=== PATIENT | female | born 1960 | race Caucasian/White ===

== ENCOUNTER 2018-12-14 18:06 | Inpatient (IN) | payer MEDICAID, OTHER ==
[~2018-12-14] VITALS: Ht 160 cm; Wt 57.1 kg
[2018-12-14] MEDS ORDERED: HYDROmorphONE 1 MG/ML SYG IV STA (20:02)
[2018-12-14] MEDS ORDERED: SOD CHLORIDE 0.9% 1,000 ML IV STA (20:02)
[2018-12-14] MEDS ORDERED: ONDANSETRON 4 MG INJ IV STA (20:02)
--- NOTE | 2018-12-14 20:12 | ERD ---
ER Documentation Chief Complaint Chief Complaint RUQ pain [id number] worse today with nausea and diarrhea HPI 58-year-old female who presents the emergency room with 1 month of right-sided abdominal pain the patient has been evaluated outside hospitals in the past and been diagnosed with cholelithiasis. Patient describes persistent abdominal pain that is right-sided lower greater than upper radiating to her right flank. She denies any fevers or chills. Mild nausea but no vomiting and slightly loose stools. Pain is 10 out of 10 currently. ROS All systems reviewed and are negative except as per history of present illness. Medications Home Meds Reported Medications Ondansetron Hcl* (Zofran*) 4 Mg Tablet, 4 MG PO Q8, TAB 12/14/18 Tramadol Hcl* (Ultram*) 50 Mg Tablet, 50 MG PO Q12H PRN for PAIN, TAB 12/14/18 Metformin Hcl* (Metformin Hcl*) 500 Mg Tablet, 500 MG PO WITH BREAKFAST DINNE, #60 TAB 12/14/18 Atorvastatin* (Atorvastatin*) 80 Mg Tablet, 80 MG PO QHS, #30 TAB 12/14/18 Allergies Allergies: Coded Allergies: No Known Allergy (Unverified , 12/14/18) FmHx Family History: No diabetes Physical Exam Vitals Vital Signs Date Temp Pulse Resp B/P (MAP) Pulse Ox O2 O2 Flow FiO2 Time Delivery Rate 12/14/18 98.9 89 18 134/86 100 Room Air 20:22 (102) 12/14/18 99.2 97 18 178/84 100 18:07 (115) Physical Exam General: Uncomfortable Head: Normocephalic, atraumatic. Eyes: Pupils equally reactive, EOM intact ENT: Moist mucous membranes Neck: Supple, no lymphadenopathy Respiratory: Lungs clear bilaterally, no distress Cardiovascular: RRR, no murmurs, rubs, or gallops Abdominal: Soft, right-sided tenderness with tenderness to palpation in the right upper quadrant and right lower quadrant, mild voluntary guarding : Deferred MSK: No edema, no unilateral swelling, 5/5 strength Neurologic: Alert and oriented, moving all extremities, normal speech, no focal weakness, no cerebellar signs Skin: No rash Psych: Normal mood Result Diagram: 12/14/18200612/14/182006 Results 24 hrs Laboratory Tests Test 12/14/18 20:07 White Blood Count 8.4 10^3/ul Red Blood Count 4.49 10^6/ul Hemoglobin 13.2 g/dl Hematocrit 40.0 % Mean Corpuscular Volume 89.1 fl Mean Corpuscular Hemoglobin 29.4 pg Mean Corpuscular Hemoglobin Concent 33.0 g/dl Red Cell Distribution Width 12.5 % Platelet Count 489 10^3/UL Mean Platelet Volume 10.3 fl Immature Granulocytes % 0.400 % Neutrophils % 52.9 % Lymphocytes % 38.2 % Monocytes % 7.1 % Eosinophils % 0.8 % Basophils % 0.6 % Nucleated Red Blood Cells % 0.0 /100WBC Immature Granulocytes # 0.030 10^3/ul Neutrophils # 4.5 10^3/ul Lymphocytes # 3.2 10^3/ul Monocytes # 0.6 10^3/ul Eosinophils # 0.1 10^3/ul Basophils # 0.1 10^3/ul Nucleated Red Blood Cells # 0.0 10^3/ul Urine Color YELLOW Urine Clarity CLEAR Urine pH 6.0 Urine Specific [place] 1.021 Urine Ketones NEGATIVE mg/dL Urine Nitrite NEGATIVE mg/dL Urine Bilirubin NEGATIVE mg/dL Urine Urobilinogen NEGATIVE mg/dL Urine Leukocyte Esterase 2+ Concha/ul Urine Microscopic RBC 3 /HPF Urine Microscopic WBC 38 /HPF Urine Squamous Epithelial Cells FEW /HPF Urine Mucus MODERATE /HPF Urine Hemoglobin NEGATIVE mg/dL Urine Glucose 3+ mg/dL Urine Total Protein NEGATIVE mg/dl Sodium Level 133 mmol/L Potassium Level 4.4 mmol/L Chloride Level 94 mmol/L Carbon Dioxide Level 29 mmol/L Anion Gap 10 Blood Urea Nitrogen 12 mg/dl Creatinine 0.45 mg/dl Est Glomerular Filtrat Rate mL/min > 60 mL/min Glucose Level 268 mg/dl Calcium Level 10.0 mg/dl Total Bilirubin 0.4 mg/dl Direct Bilirubin 0.00 mg/dl Indirect Bilirubin 0.4 mg/dl Aspartate Amino Transf (AST/SGOT) 38 IU/L Alanine Aminotransferase (ALT/SGPT) 40 IU/L Alkaline Phosphatase 142 IU/L Total Protein 8.6 g/dl Albumin 4.3 g/dl Globulin 4.30 g/dl Albumin/Globulin Ratio 1.00 Lipase 236 U/L Current Medications Medications Dose Sig/Vonnie Start Time Status Last (Trade) Ordered Route PRN Stop Time Admin Dose Reason Admin Sodium 1,000 ml @ Q1H STAT 12/14/18 DC 12/14/18 Chloride 1,000 mls/hr IV 20:02 12/14/18 20:16 21:01 1 mg ONCE STAT 12/14/18 DC 12/14/18 Hydromorphone IV 20:02 12/14/18 20:16 HCl 20:03 (Dilaudid) Ondansetron 4 mg ONCE STAT 12/14/18 DC 12/14/18 HCl (Zofran IV 20:02 12/14/18 20:16 Inj) 20:03 Sodium 1,000 ml @ Q10H IV 12/14/18 Chloride 100 mls/hr 21:30 IV Flush 3 ml PER 12/14/18 (NS 3 ml) PROTOCOL IV 21:30 Ondansetron 4 mg Q6H PRN 12/14/18 HCl (Zofran IV 21:30 Inj) NAUSEA/VOMITI NG 0.5 mg Q4H PRN 12/14/18 Hydromorphone IV .SEVERE 21:30 HCl PAIN 7-10 (Dilaudid) Docusate 100 mg Q12H PRN 12/14/18 Sodium PO 21:30 (Colace) .CONSTIPATION Bisacodyl 5 mg DAILY PRN 12/14/18 (Dulcolax) PO 21:30 .CONSTIPATION 80 mg QHS PO 12/15/18 DC Atorvastatin 21:00 12/15/18 Calcium 21:00 (Lipitor) 80 mg QHS PO 12/14/18 Atorvastatin 22:00 Calcium (Lipitor) Procedures/MDM EKG, MONITORS, & DIAGNOSTIC IMAGING: Gallbladder ultrasound: IMPRESSION: Cholelithiasis without evidence of acute cholecystitis. Hepatic steatosis. RPTAT: AA CT abdomen and pelvis: IMPRESSION: No acute abnormalities in the abdomen or pelvis. Cholelithiasis without CT evidence of acute cholecystitis. Atherosclerotic disease. RPTAT: AA LAB INTERPRETATION: * CBC without evidence of infection, chemistry profile without evidence of hepatobiliary obstruction MEDICAL DECISION MAKING: Patient presents with right-sided abdominal pain. She is describing and pointing to her pain is the lower abdomen which raises the concern for possible appendicitis or colonic process. However, the patient has a known history of c holelithiasis. I have a strong suspicion for biliary colic or acute cholecystitis or acute choledocholithiasis. CT imaging and ultrasound imaging will be appropriate. Patient benefit from IV fluids and pain control medication. ER COURSE: * Patient still has persistent pain. The patient likely has biliary colic. Patient has been bouncing around different hospitals with the diagnosis of biliary colic and is at risk for gallstone pancreatitis. I would recommend inpatient hospitalization if the patient's pain cannot be controlled. She feels comfortable with this plan. Dr. Hagen notified. He will consult. * No indication for antibiotics. CONSULTATION: [None] DISPOSITION PLAN: Medical surgical admission for intractable abdominal pain secondary to biliary colic Accepting care team and consultations: I discussed the current laboratory data, diagnostic imaging and emergency care provided. Admitting team: Dr. [place] Admitting team indication: Insurance directed Departure Diagnosis: Primary Impression: Abdominal pain Abdominal location: right upper quadrant Qualified Codes: R10.11 - Right upper quadrant pain Additional Impressions: Biliary colic Intractable abdominal pain Condition: Stable ANNAMARIE DOE MD Dec 14, 2018 20:12
[2018-12-14] MEDS ORDERED: METF500T24 PO (20:30)
[2018-12-14] MEDS ORDERED: ATOR-2 PO (20:30)
[2018-12-14] MEDS ORDERED: TRAM50TA PO (20:31)
[2018-12-14] MEDS ORDERED: ONDA4TAB8 PO (20:31)
[2018-12-14] MEDS ORDERED: NACL 0.9% 3 ML SYG IV SCH (21:30)
--- NOTE | 2018-12-14 21:35 | HP ---
Date/Time of Note Date/Time of Note DATE: 12/14/18 TIME: 21:35 Assessment/Plan VTE Prophylaxis SCD applied (from Nsg): Yes Pharmacological prophylaxis: NA/contraindicated Pharm contraindication: low risk/ambulating Lines/Catheters IV Catheter Type (from Nrsg): Saline Lock Assessment/Plan Hospital Course This is a 58-year-old female being admitted to the [facility] floor for: #1 symptomatic cholelithiasis: Patient has been dealing with gallstones approximately 1 month. Has been to multiple hospitals. General surgery has been consulted by the ED, will await their recommendations. At the current time I will give her a dose of prophylactic Zosyn in the a.m. in case does go to the operating room. She remains afebrile. But she is in pain. We will keep the patient n.p.o. except meds, pain control. #2 urinary tract infection: Urine culture, ceftriaxone 1 g every 24 hours #3 diabetes mellitus: We will check hemoglobin A 1C, insulin sliding scale, adjust diabetes medications as indicated #4 DVT GI prophylaxis: SCDs, no GI prophylaxis indicated Further treatment strategy will be implemented as per the clinical course Result Diagram: 12/14/18200612/14/182006 Results 24hrs Laboratory Tests Test 12/14/18 20:07 White Blood Count 8.4 Red Blood Count 4.49 Hemoglobin 13.2 Hematocrit 40.0 Mean Corpuscular Volume 89.1 Mean Corpuscular Hemoglobin 29.4 Mean Corpuscular Hemoglobin Concent 33.0 Red Cell Distribution Width 12.5 Platelet Count 489 H Mean Platelet Volume 10.3 Immature Granulocytes % 0.400 Neutrophils % 52.9 Lymphocytes % 38.2 Monocytes % 7.1 Eosinophils % 0.8 Basophils % 0.6 Nucleated Red Blood Cells % 0.0 Immature Granulocytes # 0.030 Neutrophils # 4.5 Lymphocytes # 3.2 H Monocytes # 0.6 Eosinophils # 0.1 Basophils # 0.1 Nucleated Red Blood Cells # 0.0 Urine Color YELLOW Urine Clarity CLEAR Urine pH 6.0 Urine Specific [place] 1.021 Urine Ketones NEGATIVE Urine Nitrite NEGATIVE Urine Bilirubin NEGATIVE Urine Urobilinogen NEGATIVE Urine Leukocyte Esterase 2+ H Urine Microscopic RBC 3 Urine Microscopic WBC 38 H Urine Squamous Epithelial Cells FEW Urine Mucus MODERATE Urine Hemoglobin NEGATIVE Urine Glucose 3+ H Urine Total Protein NEGATIVE Sodium Level 133 L Potassium Level 4.4 Chloride Level 94 L Carbon Dioxide Level 29 Anion Gap 10 Blood Urea Nitrogen 12 Creatinine 0.45 Est Glomerular Filtrat Rate mL/min > 60 Glucose Level 268 H Calcium Level 10.0 Total Bilirubin 0.4 Direct Bilirubin 0.00 Indirect Bilirubin 0.4 Aspartate Amino Transf (AST/SGOT) 38 Alanine Aminotransferase (ALT/SGPT) 40 Alkaline Phosphatase 142 H Total Protein 8.6 H Albumin 4.3 Globulin 4.30 H Albumin/Globulin Ratio 1.00 Lipase 236 HPI/ROS Admit Date/Time Admit Date/Time Hx of Present Illness Chief complaint: Right upper quadrant abdominal pain times 1 month This is a 58-year-old female who presents the emergency room with 1 month of right-sided abdominal pain the patient has been evaluated outside hospitals in the past and been diagnosed with cholelithiasis. Patient describes persistent abdominal pain that is right-sided lower greater than upper radiating to her right flank. She denies any fevers or chills. Mild nausea but no vomiting and slightly loose stools. When patient was in the emergency room she did report 10 out of 10 pain. Patient reports that she was admitted to [place] and was scheduled to have a cholecystectomy however given that she was not a [facility] member she was not able to have the surgery there. Allergies: NKDA Medications: See MAR ROS Const: As per HPI Eyes : No pain discharge or redness or change in visual acuity ENT: No pain, sore throat, congestion, congestion, dysphagia or discharge Respiratory: No shortness of breath, cough, sputum, wheezing, or pleuritic pain Cardiovascular: No chest pain, palpitation, PND, or edema GI : As per HPI Genitourinary: Urinary frequency Musculoskeletal: No joint pain, back pain, neck pain, restricted range of motion in neck or joints Skin: No rash, bruising or hives Neuro: No headache, dizziness, syncope, seizure, focal weakness Endocrine: No polyuria, polydipsia, temperature intolerance Psych: No hallucination, depression, anxiety or suicidal ideation Additional Comments PROCEDURE: CT abdomen and pelvis without contrast CLINICAL INDICATION: abdominal pain TECHNIQUE: CT scan of the abdomen and pelvis without contrast was performed on a multislice CT scanner. 3-D sagittal and coronal reformatted images were obtained from the axial source images. DICOM images are available. One or more of the following post reduction techniques were used: - Automated exposure control. - Adjustment of the mA and/or Kv according to patient's size. - Use of iterative reconstruction technique DLP 342 mGycm CTDIvol 5.6 mGy COMPARISON: None FINDINGS: Visualized lung bases: Unremarkable Liver: Unremarkable Gallbladder: There are multiple intraluminal gallstones. Spleen: Unremarkable Pancreas: Unremarkable Adrenal glands: Unremarkable Kidneys: Unremarkable GI Tract: Unremarkable Vasculature: Mild aortoiliac atherosclerotic disease. Lymphadenopathy: Absent Peritoneal cavity: No ascites Bladder: The bladder is distended. Reproductive organs: Unremarkable Bones: Degenerative changes of the spine. Extraperitoneal soft tissues: Unremarkable Lines/drains/medical devices: None IMPRESSION: No acute abnormalities in the abdomen or pelvis. Cholelithiasis without CT evidence of acute cholecystitis. Atherosclerotic disease. RPTAT: AA Physician Misael Date Time Electronically viewed and signed by Lisbeth Corona Physician on 12/14/2018 21:09 RB/ CC: ANNAMARIE DOE MD [id number] PROCEDURE: US Abdomen Limited. CLINICAL INDICATION: Abdominal pain TECHNIQUE: Multiple real-time images were acquired of the patient's abdomen utilizing a high resolution transducer. COMPARISON: None FINDINGS: Liver: Normal in size measuring 16.5 cm. Increased echogenicity. No focal lesions. Gallbladder: No intraluminal gallstones. No pericholecystic fluid. No wall thickening. Biliary tract: No intra- or extrahepatic ductal dilation. The common bile duct measures 5 mm in maximal dimension. Pancreas: Poorly visualized due to excessive bowel gas. Right Kidney: Normal in size measuring 10.0 cm. Normal echogenicity. No dilatation of the pelvicaliceal system. No areas of increased echogenicity to suggest nephrolithiasis. No solid renal mass. Other: No free fluid is identified. IMPRESSION: Cholelithiasis without evidence of acute cholecystitis. Hepatic steatosis. RPTAT: AA Lisbeth Corona Physician Date Time Electronically viewed and signed by Lisbeth Corona Physician on 12/14/2018 21:10 RB/ CC: ANNAMARIE DOE MD [id number] PMH/Family/Social Past Medical History Diabetes mellitus, history of ovarian tumor Medications Current Medications Sodium Chloride 1,000 ml @ 100 mls/hr Q10H IV ; Start 12/14/18 at 21:30 IV Flush (NS 3 ml) 3 ml PER PROTOCOL IV ; Start 12/14/18 at 21:30 Ondansetron HCl (Zofran Inj) 4 mg Q6H PRN IV NAUSEA/VOMITING; Start 12/14/18 at 21:30 Hydromorphone HCl (Dilaudid) 0.5 mg Q4H PRN IV .SEVERE PAIN 7-10; Start 12/14/18 at 21:30 Docusate Sodium (Colace) 100 mg Q12H PRN PO .CONSTIPATION; Start 12/14/18 at 21:30 Bisacodyl (Dulcolax) 5 mg DAILY PRN PO .CONSTIPATION; Start 12/14/18 at 21:30 Coded Allergies: No Known Allergy (Unverified , 12/14/18) Past Surgical History Ovarian tumor removal, unknown which side Family History Significant Family History: no pertinent family hx Social History Alcohol Use: none Smoking Status: Never smoker Drug Use: none Exam/Review of Systems Vital Signs Vitals Vital Signs Date Temp Pulse Resp B/P (MAP) Pulse Ox O2 O2 Flow FiO2 Time Delivery Rate 12/14/18 98.9 89 18 134/86 100 Room Air 20:22 (102) Exam Exam General: Patient is currently lying in bed, she does appear uncomfortable from right upper quadrant pain HEENT: Atraumatic, normocephalic. The pupils are equal, round and reactive. Extraocular motor are intact Neck: Supple with full range of motion. No rigidity or meningismus Chest: Nontender Lungs: Clear to auscultation bilaterally no crackles rales or wheezing Heart: Normal S1-S2, Regular rhythm and rate. No murmur, S3, or S4 Abdomen: Soft , tenderness of the right upper quadrant, nondistended , bowel sounds are present. No guarding no rebound tenderness , No masses or org anomegaly. No costovertebral temporal angle mass Genitourinary: Mild suprapubic tenderness palpation Extremities: Normal to inspection, no edema no cyanosis Neurologic: Normal mental status, speech normal, cranial nerves II through XII are intact, motor and sensory are intact, no focal weakness Additional Comments PROCEDURE: CT abdomen and pelvis without contrast CLINICAL INDICATION: abdominal pain TECHNIQUE: CT scan of the abdomen and pelvis without contrast was performed on a multislice CT scanner. 3-D sagittal and coronal reformatted images were obtained from the axial source images. DICOM images are available. One or more of the following post reduction techniques were used: - Automated exposure control. - Adjustment of the mA and/or Kv according to patient's size. - Use of iterative reconstruction technique DLP 342 mGycm CTDIvol 5.6 mGy COMPARISON: None FINDINGS: Visualized lung bases: Unremarkable Liver: Unremarkable Gallbladder: There are multiple intraluminal gallstones. Spleen: Unremarkable Pancreas: Unremarkable Adrenal glands: Unremarkable Kidneys: Unremarkable GI Tract: Unremarkable Vasculature: Mild aortoiliac atherosclerotic disease. Lymphadenopathy: Absent Peritoneal cavity: No ascites Bladder: The bladder is distended. Reproductive organs: Unremarkable Bones: Degenerative changes of the spine. Extraperitoneal soft tissues: Unremarkable Lines/drains/medical devices: None IMPRESSION: No acute abnormalities in the abdomen or pelvis. Cholelithiasis without CT evidence of acute cholecystitis. Atherosclerotic disease. RPTAT: AA Physician Misael Date Time Electronically viewed and signed by Physician Misael on 12/14/2018 21:09 RB/ CC: ANNAMARIE DOE MD [id number] PROCEDURE: US Abdomen Limited. CLINICAL INDICATION: Abdominal pain TECHNIQUE: Multiple real-time images were acquired of the patient's abdomen utilizing a high resolution transducer. COMPARISON: None FINDINGS: Liver: Normal in size measuring 16.5 cm. Increased echogenicity. No focal lesions. Gallbladder: No intraluminal gallstones. No pericholecystic fluid. No wall thickening. Biliary tract: No intra- or extrahepatic ductal dilation. The common bile duct measures 5 mm in maximal dimension. Pancreas: Poorly visualized due to excessive bowel gas. Right Kidney: Normal in size measuring 10.0 cm. Normal echogenicity. No dilatation of the pelvicaliceal system. No areas of increased echogenicity to suggest nephrolithiasis. No solid renal mass. Other: No free fluid is identified. IMPRESSION: Cholelithiasis without evidence of acute cholecystitis. Hepatic steatosis. RPTAT: AA Physician Misael Date Time Electronically viewed and signed by Physician Misael on 12/14/2018 21:10 RB/ CC: ANNAMARIE DOE MD [id number] ALECIA ZAMUDIO Dec 14, 2018 21:35
[2018-12-14] MEDS: ATORVASTATIN 80 MG TAB PO SCH (22:23)
[2018-12-14] MEDS: SOD CHLORIDE 0.9% 1,000 ML IV SCH (22:23)
[2018-12-14 23:26] VITALS: Ht 160 cm; Wt 57.1 kg
[2018-12-14 23:30] VITALS: BP 133/70; PULSE 82; RESP 18
[2018-12-14] MEDS: ONDANSETRON 4 MG INJ IV PRN (23:38)
[2018-12-15 02:03] VITALS: BP 129/72; RESP 20
[2018-12-15] MEDS: CEFTRIAXONE 1 GM/50 ML (PMX) 50 ML IVPB SCH (05:25)
--- NOTE | 2018-12-15 06:02 | NUR ---
EOSS: PATIENT ADMITTED WITH DX OF BILIARY COLIC. NOTED WITH NAUSEA AND VOMITING. ZOFRAN IV GIVEN ORDERED WITH RELIEF. PATIENT ON NPO STATUS IV FLUIDS INFUSING. PATIENT ABLE TO AMBULATE WITHOUT AD, STEADY. NEEDS MET & ATTENDED. WILL CONTINUE TO MONITOR.
[2018-12-15] MEDS ORDERED: PIPER-TAZO 3.375 GM IV (PMX) 100 ML IVPB ONE (07:30)
[2018-12-15 08:14] VITALS: BP 117/61; RESP 20
[2018-12-15] MEDS: SOD CHLORIDE 0.9% 1,000 ML IV SCH ×2 (08:14→20:16)
--- NOTE | 2018-12-15 10:07 | PN ---
Date/Time of Note Date/Time of Note DATE: 12/15/18 TIME: 10:06 Assessment/Plan VTE Prophylaxis SCD applied (from Nsg): Yes Pharmacological prophylaxis: NA/contraindicated Pharm contraindication: low risk/ambulating Lines/Catheters IV Catheter Type (from Nrsg): Peripheral IV Assessment/Plan Hospital Course SUBJECTIVE: Continues to have abdominal pain. Denies any nausea vomiting. OBJECTIVE: Physical Exam General: Adequately build 58 year-old female lying in bed in no apparent distres s. HEENT: Normocephalic, atraumatic. Eyes: Anicteric sclerae, conjunctivae clear. ENT: Nasal septum midline, oral mucosa moist. Neck supple. Respiratory: Bilaterally clear breath sounds. No use of accessory muscles of respiration. No adventitious breath sounds. Cardiovascular: S1, S2 heard. Regular rate and rhythm. Abdomen: Soft and nondistended. Right lower quadrant tenderness. Bowel sounds positive in all 4 quadrants. Genitourinary: Deferred. Extremities: No cyanosis, no clubbing, no edema. Peripheral pulses palpable. Neurologic: Cranial nerves II through XII grossly intact. The patient is awake, alert, and oriented. Skin: Normal skin turgor. No skin rashes. Labs & Vitals per chart ASSESSMENT & PLAN This is a 58-year-old female with past medical history of diabetes mellitus and history of ovarian tumor status post removal. The patient has been to multiple hospitals recently because of abdominal pain. The patient came to [facility] emergency room because of continuous right upper quadrant abdominal pain with associated nausea and diarrhea. There was no reported fevers or chills. In the emergency room, the patient underwent a gallbladder ultrasound that was showing cholelithiasis with hepatic steatosis. CT scan of the abdomen and pelvis also showed cholelithiasis without CT evidence of acute cholecystitis. The patient was admitted to inpatient setting for further treatment and evaluation. 1. Symptomatic cholelithiasis. -Continue n.p.o. -Continue IV fluids. -Obtain HIDA scan. -Surgical consult pending. 2. Positive urinalysis. -On empiric antibiotics. -Await final cultures. 3. Diabetes mellitus. -Hemoglobin A1c 10.9. -Start the patient on sliding scale insulin along with basal insulin. 4. Fluids, electrolytes, and nutrition. -N.p.o. except for medications. -IV fluids. 5.DVT prophylaxis. -Bilateral SCDs. 6. Plan. -Continue pain control. -Continue n.p.o. -Obtain HIDA scan. -Await surgical evaluation. The patient was seen in collaboration with Dr. Ayala. Result Diagram: 12/15/1844912/15/18 0450 Results 24hrs Laboratory Tests Test 12/14/18 20:07 12/15/18 04:50 White Blood Count 8.4 6.1 # Red Blood Count 4.49 3.71 L Hemoglobin 13.2 10.9 L Hematocrit 40.0 33.2 L Mean Corpuscular Volume 89.1 89.5 Mean Corpuscular Hemoglobin 29.4 29.4 Mean Corpuscular Hemoglobin Concent 33.0 32.8 Red Cell Distribution Width 12.5 12.3 Platelet Count 489 H 425 H Mean Platelet Volume 10.3 10.7 H Immature Granulocytes % 0.400 0.200 Neutrophils % 52.9 55.5 Lymphocytes % 38.2 35.1 Monocytes % 7.1 7.8 Eosinophils % 0.8 0.7 Basophils % 0.6 0.7 Nucleated Red Blood Cells % 0.0 0.0 Immature Granulocytes # 0.030 0.010 Neutrophils # 4.5 3.4 Lymphocytes # 3.2 H 2.1 Monocytes # 0.6 0.5 Eosinophils # 0.1 0.0 Basophils # 0.1 0.0 Nucleated Red Blood Cells # 0.0 0.0 Urine Color YELLOW Urine Clarity CLEAR Urine pH 6.0 Urine Specific Tensed 1.021 Urine Ketones NEGATIVE Urine Nitrite NEGATIVE Urine Bilirubin NEGATIVE Urine Urobilinogen NEGATIVE Urine Leukocyte Esterase 2+ H Urine Microscopic RBC 3 Urine Microscopic WBC 38 H Urine Squamous Epithelial Cells FEW Urine Mucus MODERATE Urine Hemoglobin NEGATIVE Urine Glucose 3+ H Urine Total Protein NEGATIVE Sodium Level 133 L 134 L Potassium Level 4.4 4.7 Chloride Level 94 L 100 Carbon Dioxide Level 29 27 Anion Gap 10 7 Blood Urea Nitrogen 12 9 Creatinine 0.45 0.38 L Est Glomerular Filtrat Rate mL/min > 60 > 60 Glucose Level 268 H 299 H Calcium Level 10.0 8.8 Total Bilirubin 0.4 0.4 Direct Bilirubin 0.00 0.00 Indirect Bilirubin 0.4 0.4 Aspartate Amino Transf (AST/SGOT) 38 31 Alanine Aminotransferase (ALT/SGPT) 40 34 Alkaline Phosphatase 142 H 110 Total Protein 8.6 H 6.3 # Albumin 4.3 3.2 #L Globulin 4.30 H 3.10 Albumin/Globulin Ratio 1.00 1.03 Lipase 236 Hemoglobin A1c 10.9 H Magnesium Level 2.2 Triglycerides Level 96 Cholesterol Level 99 L LDL Cholesterol, Calculated 60 HDL Cholesterol 20 L Cholesterol/HDL Ratio 4.9 Thyroid Stimulating Hormone (TSH) 0.149 L Exam/Review of Systems Exam Vitals Vital Signs Date Temp Pulse Resp B/P (MAP) Pulse Ox O2 O2 Flow FiO2 Time Delivery Rate 12/15/18 98.8 20 117/61 96 Room Air 08:14 (79) 12/14/18 82 23:30 Intake and Output 12/14/18 12/14/18 12/15/18 1515:00 23:00 07:00 IntakeIntake Total 700 ml BalanceBalance 700 ml Results Results 24hrs Laboratory Tests Test 12/14/18 20:07 12/15/18 04:50 White Blood Count 8.4 6.1 # Red Blood Count 4.49 3.71 L Hemoglobin 13.2 10.9 L Hematocrit 40.0 33.2 L Mean Corpuscular Volume 89.1 89.5 Mean Corpuscular Hemoglobin 29.4 29.4 Mean Corpuscular Hemoglobin Concent 33.0 32.8 Red Cell Distribution Width 12.5 12.3 Platelet Count 489 H 425 H Mean Platelet Volume 10.3 10.7 H Immature Granulocytes % 0.400 0.200 Neutrophils % 52.9 55.5 Lymphocytes % 38.2 35.1 Monocytes % 7.1 7.8 Eosinophils % 0.8 0.7 Basophils % 0.6 0.7 Nucleated Red Blood Cells % 0.0 0.0 Immature Granulocytes # 0.030 0.010 Neutrophils # 4.5 3.4 Lymphocytes # 3.2 H 2.1 Monocytes # 0.6 0.5 Eosinophils # 0.1 0.0 Basophils # 0.1 0.0 Nucleated Red Blood Cells # 0.0 0.0 Urine Color YELLOW Urine Clarity CLEAR Urine pH 6.0 Urine Specific [place]ensed 1.021 Urine Ketones NEGATIVE Urine Nitrite NEGATIVE Urine Bilirubin NEGATIVE Urine Urobilinogen NEGATIVE Urine Leukocyte Esterase 2+ H Urine Microscopic RBC 3 Urine Microscopic WBC 38 H Urine Squamous Epithelial Cells FEW Urine Mucus MODERATE Urine Hemoglobin NEGATIVE Urine Glucose 3+ H Urine Total Protein NEGATIVE Sodium Level 133 L 134 L Potassium Level 4.4 4.7 Chloride Level 94 L 100 Carbon Dioxide Level 29 27 Anion Gap 10 7 Blood Urea Nitrogen 12 9 Creatinine 0.45 0.38 L Est Glomerular Filtrat Rate mL/min > 60 > 60 Glucose Level 268 H 299 H Calcium Level 10.0 8.8 Total Bilirubin 0.4 0.4 Direct Bilirubin 0.00 0.00 Indirect Bilirubin 0.4 0.4 Aspartate Amino Transf (AST/SGOT) 38 31 Alanine Aminotransferase (ALT/SGPT) 40 34 Alkaline Phosphatase 142 H 110 Total Protein 8.6 H 6.3 # Albumin 4.3 3.2 #L Globulin 4.30 H 3.10 Albumin/Globulin Ratio 1.00 1.03 Lipase 236 Hemoglobin A1c 10.9 H Magnesium Level 2.2 Triglycerides Level 96 Cholesterol Level 99 L LDL Cholesterol, Calculated 60 HDL Cholesterol 20 L Cholesterol/HDL Ratio 4.9 Thyroid Stimulating Hormone (TSH) 0.149 L Medications Medication Current Medications Sodium Chloride 1,000 ml @ 100 mls/hr Q10H IV Last administered on 12/15/18at 08:14; Admin Dose 100 MLS/HR; Start 12/14/18 at 21:30 IV Flush (NS 3 ml) 3 ml PER PROTOCOL IV ; Start 12/14/18 at 21:30 Ondansetron HCl (Zofran Inj) 4 mg Q6H PRN IV NAUSEA/VOMITING Last administered on 12/14/18at 23:38; Admin Dose 4 MG; Start 12/14/18 at 21:30 Hydromorphone HCl (Dilaudid) 0.5 mg Q4H PRN IV .SEVERE PAIN 7-10; Start 12/14/18 at 21:30 Docusate Sodium (Colace) 100 mg Q12H PRN PO .CONSTIPATION; Start 12/14/18 at 21:30 Bisacodyl (Dulcolax) 5 mg DAILY PRN PO .CONSTIPATION; Start 12/14/18 at 21:30 Atorvastatin Calcium (Lipitor) 80 mg QHS PO Last administered on 12/14/18at 22:23; Admin Dose 80 MG; Start 12/14/18 at 22:00 Ceftriaxone Sodium 50 ml @ 100 mls/hr Q24H IVPB Last administered on 12/15/18at 05:25; Admin Dose 100 MLS/HR; Start 12/15/18 at 02:30 MINA REID NP Dec 15, 2018 10:07
[2018-12-15] MEDS ORDERED: GLUCOSE GEL 15 GRAM TUBE BUCCAL PRN (10:30)
[2018-12-15] MEDS ORDERED: INSULIN ASPART [NOVOLOG] 3 ML PEN SC SCH (10:30)
[2018-12-15] MEDS ORDERED: GLUCAGON 1 MG INJ IM PRN (10:30)
[2018-12-15] MEDS ORDERED: GLUCOSE GEL 15 GRAM TUBE PO PRN ×2 (10:30)
[2018-12-15] MEDS ORDERED: DEXTROSE 50% 50 ML SYRINGE IV PRN ×2 (10:30)
[2018-12-15] MEDS ORDERED: Insulin NOVOLOG SS MILD Algorithm (NPO/TPN/ENTERAL FEEDS) SC SCH (13:00)
[2018-12-15 14:00] VITALS: BP 120/66; PULSE 68; RESP 18
--- NOTE | 2018-12-15 17:12 | CONS ---
Assessment/Plan Assessment/Plan Hospital Course (Demo Recall) 1. Cholelithiasis:? Asymptomatic; HIDA noted -Diet [id number] low-cholesterol> if prandial pain can consider sx 2. Abdominal pain: 2/? #1 versus other -As above -Pain management 3.Thrombocytosis: -Trend -Further workup if persistent 4. Normocytic normochromic anemia: -Monitor and transfuse as needed 5. Hyponatremia: -Judicious fluid correction 6. Controlled diabetes: -Glucose control 7. Hypothyroidism: -Med management 8. Hypoalbuminemia: -Eventual nutrition optimization 9. Pyuria -Frequent bladder emptying Thank you. Patient seen and examined in collaboration with Dr. Josh Hagen. Consultation Date/Type/Reason Admit Date/Time Date of Consultation: Dec 15, 2018 Type of Consult surgical Reason for Consultation abdominal pain Requesting Provider: ALECIA ZAMUDIO Date/Time of Note DATE: 12/15/18 TIME: 16:59 Hx of Present Illness Saima Hernandez is a 58-year-old woman with past medical history of diabetes and ovarian tumor status post ovarian tumor removal who presented to the hospital with complaints of abdominal pain times 1 month. Abdominal pain is predominantly in the right lower quadrant burning in nature. Pain is reportedly worsening over the past 1 month. Pain is persistent without any noted exacerbating factors. Alleviating factors include analgesics. Associated symptoms include nausea without vomiting and loose stools. She denies fevers, chills, congested cough chest pain, palpitations, dysuria, hematuria, hematochezia or dyschezia, hematemesis, melena, vaginal discharge or bleeding. CT of the abdomen shows cholelithiasis without evidence of acute cholecystitis. Laboratory findings are unremarkable. General surgery was asked to evaluate. 12 point review of systems was performed and is negative except as stated in HPI. Past Medical History As above Home Meds Reported Medications Ondansetron Hcl* (Zofran*) 4 Mg Tablet, 4 MG PO Q8, TAB 12/14/18 Tramadol Hcl* (Ultram*) 50 Mg Tablet, 50 MG PO Q12H PRN for PAIN, TAB 12/14/18 Metformin Hcl* (Metformin Hcl*) 500 Mg Tablet, 500 MG PO WITH BREAKFAST DINNE, #60 TAB 12/14/18 Atorvastatin* (Atorvastatin*) 80 Mg Tablet, 80 MG PO QHS, #30 TAB 12/14/18 Medications Current Medications Sodium Chloride 1,000 ml @ 100 mls/hr Q10H IV Last administered on 12/15/18at 08:14; Admin Dose 100 MLS/HR; Start 12/14/18 at 21:30 IV Flush (NS 3 ml) 3 ml PER PROTOCOL IV ; Start 12/14/18 at 21:30 Ondansetron HCl (Zofran Inj) 4 mg Q6H PRN IV NAUSEA/VOMITING Last administered on 12/14/18at 23:38; Admin Dose 4 MG; Start 12/14/18 at 21:30 Hydromorphone HCl (Dilaudid) 0.5 mg Q4H PRN IV .SEVERE PAIN 7-10; Start 12/14/18 at 21:30 Docusate Sodium (Colace) 100 mg Q12H PRN PO .CONSTIPATION; Start 12/14/18 at 21:30 Bisacodyl (Dulcolax) 5 mg DAILY PRN PO .CONSTIPATION; Start 12/14/18 at 21:30 Atorvastatin Calcium (Lipitor) 80 mg QHS PO Last administered on 12/14/18at 22:23; Admin Dose 80 MG; Start 12/14/18 at 22:00 Ceftriaxone Sodium 50 ml @ 100 mls/hr Q24H IVPB Last administered on 12/15/18at 05:25; Admin Dose 100 MLS/HR; Start 12/15/18 at 02:30 Insulin Glargine (Lantus) 9 units DAILY@2000 SC ; Start 12/15/18 at 20:00 Insulin Aspart (Novolog Insulin Pen) (Adult SC Insulin - Mild Algorithm)... Q4 SC Last administered on 12/15/18at 15:20; Admin Dose 1 UNIT; Start 12/15/18 at 13:00 Miscellaneous Information 1 ea NOTE XX ; Start 12/15/18 at 10:30 Glucose (Glutose) 15 gm Q15M PRN PO DECREASED GLUCOSE; Start 12/15/18 at 10:30 Glucose (Glutose) 22.5 gm Q15M PRN PO DECREASED GLUCOSE; Start 12/15/18 at 10:30 Dextrose (D50w Syringe) 25 ml Q15M PRN IV DECREASED GLUCOSE; Start 12/15/18 at 10:30 Dextrose (D50w Syringe) 50 ml Q15M PRN IV DECREASED GLUCOSE; Start 12/15/18 at 10:30 Glucagon (Glucagen) 1 mg Q15M PRN IM DECREASED GLUCOSE; Start 12/15/18 at 10:30 Glucose (Glutose) 15 gm Q15M PRN BUCCAL DECREASED GLUCOSE; Start 12/15/18 at 10:30 Allergies: Coded Allergies: No Known Allergy (Unverified , 12/14/18) Past Surgical History As above Family History Significant Family History: no pertinent family hx Social History Alcohol Use: none Smoking Status: Never smoker Drug Use: none Exam/Review of Systems Exam Vitals Vital Signs Date Temp Pulse Resp B/P (MAP) Pulse Ox O2 O2 Flow FiO2 Time Delivery Rate 12/15/18 98.8 20 117/61 96 Room Air 08:14 (79) 12/14/18 82 23:30 Intake and Output 12/14/18 12/14/18 12/15/18 1515:00 23:00 07:00 IntakeIntake Total 700 ml BalanceBalance 700 ml Constitutional: alert, oriented Psych: nl mood/affect, anxiety (Minimal) Head: normocephalic, atraumatic Eyes: nl conjunctiva, EOMI, nl lids, nl sclera ENMT: nl external ears & nose, nl lips & teeth, mucosa pink and moist Neck: supple, non-tender Respiratory: normal air movement; No congested cough Cardiovascular: regular rate and rhythm, nl pulses Gastrointestinal: soft, tender (Generalized); No distended, No firm Musculoskeletal: nl extremities to inspection, nl gait and stance Extremities: normal pulses; No edema Neurological: nl mental status, nl speech, nl strength Skin: nl turgor; No rash or lesions Lymph: nl lymph nodes Results Result Diagram: 12/15/1844912/15/18449 Results 24hrs Laboratory Tests Test 12/14/18 20:07 12/15/18 04:49 12/15/18 04:50 12/15/18 15:18 White Blood Count 8.4 6.1 # Red Blood Count 4.49 3.71 L Hemoglobin 13.2 10.9 L Hematocrit 40.0 33.2 L Mean Corpuscular Volume 89.1 89.5 Mean Corpuscular 29.4 29.4 Hemoglobin Mean Corpuscular 33.0 32.8 Hemoglobin Concent Red Cell Distribution 12.5 12.3 Width Platelet Count 489 H 425 H Mean Platelet Volume 10.3 10.7 H Immature Granulocytes % 0.400 0.200 Neutrophils % 52.9 55.5 Lymphocytes % 38.2 35.1 Monocytes % 7.1 7.8 Eosinophils % 0.8 0.7 Basophils % 0.6 0.7 Nucleated Red Blood 0.0 0.0 Cells % Immature Granulocytes # 0.030 0.010 Neutrophils # 4.5 3.4 Lymphocytes # 3.2 H 2.1 Monocytes # 0.6 0.5 Eosinophils # 0.1 0.0 Basophils # 0.1 0.0 Nucleated Red Blood 0.0 0.0 Cells # Urine Color YELLOW Urine Clarity CLEAR Urine pH 6.0 Urine Specific [place] 1.021 Urine Ketones NEGATIVE Urine Nitrite NEGATIVE Urine Bilirubin NEGATIVE Urine Urobilinogen NEGATIVE Urine Leukocyte Esterase 2+ H Urine Microscopic RBC 3 Urine Microscopic WBC 38 H Urine Squamous FEW Epithelial Cells Urine Mucus MODERATE Urine Hemoglobin NEGATIVE Urine Glucose 3+ H Urine Total Protein NEGATIVE Sodium Level 133 L 134 L Potassium Level 4.4 4.7 Chloride Level 94 L 100 Carbon Dioxide Level 29 27 Anion Gap 10 7 Blood Urea Nitrogen 12 9 Creatinine 0.45 0.38 L Est Glomerular Filtrat > 60 > 60 Rate mL/min Glucose Level 268 H 299 H Calcium Level 10.0 8.8 Total Bilirubin 0.4 0.4 Direct Bilirubin 0.00 0.00 Indirect Bilirubin 0.4 0.4 Aspartate Amino 38 31 Transf (AST/SGOT) Alanine 40 34 Aminotransferase (ALT/SG PT) Alkaline Phosphatase 142 H 110 Total Protein 8.6 H 6.3 # Albumin 4.3 3.2 #L Globulin 4.30 H 3.10 Albumin/Globulin Ratio 1.00 1.03 Lipase 236 Free Thyroxine 2.12 H Hemoglobin A1c 10.9 H Magnesium Level 2.2 Triglycerides Level 96 Cholesterol Level 99 L LDL Cholesterol, 60 Calculated HDL Cholesterol 20 L Cholesterol/HDL Ratio 4.9 Thyroid Stimulating 0.149 L Hormone (TSH) Bedside Glucose 162 Medications Medication Current Medications Sodium Chloride 1,000 ml @ 100 mls/hr Q10H IV Last administered on 12/15/18at 08:14; Admin Dose 100 MLS/HR; Start 12/14/18 at 21:30 IV Flush (NS 3 ml) 3 ml PER PROTOCOL IV ; Start 12/14/18 at 21:30 Ondansetron HCl (Zofran Inj) 4 mg Q6H PRN IV NAUSEA/VOMITING Last administered on 12/14/18at 23:38; Admin Dose 4 MG; Start 12/14/18 at 21:30 Hydromorphone HCl (Dilaudid) 0.5 mg Q4H PRN IV .SEVERE PAIN 7-10; Start 12/14/18 at 21:30 Docusate Sodium (Colace) 100 mg Q12H PRN PO .CONSTIPATION; Start 12/14/18 at 21:30 Bisacodyl (Dulcolax) 5 mg DAILY PRN PO .CONSTIPATION; Start 12/14/18 at 21:30 Atorvastatin Calcium (Lipitor) 80 mg QHS PO Last administered on 12/14/18at 22:23; Admin Dose 80 MG; Start 12/14/18 at 22:00 Ceftriaxone Sodium 50 ml @ 100 mls/hr Q24H IVPB Last administered on 12/15/18at 05:25; Admin Dose 100 MLS/HR; Start 12/15/18 at 02:30 Insulin Glargine (Lantus) 9 units DAILY@2000 SC ; Start 12/15/18 at 20:00 Insulin Aspart (Novolog Insulin Pen) (Adult SC Insulin - Mild Algorithm)... Q4 SC Last administered on 12/15/18at 15:20; Admin Dose 1 UNIT; Start 12/15/18 at 13:00 Miscellaneous Information 1 ea NOTE XX ; Start 12/15/18 at 10:30 Glucose (Glutose) 15 gm Q15M PRN PO DECREASED GLUCOSE; Start 12/15/18 at 10:30 Glucose (Glutose) 22.5 gm Q15M PRN PO DECREASED GLUCOSE; Start 12/15/18 at 10:30 Dextrose (D50w Syringe) 25 ml Q15M PRN IV DECREASED GLUCOSE; Start 12/15/18 at 10:30 Dextrose (D50w Syringe) 50 ml Q15M PRN IV DECREASED GLUCOSE; Start 12/15/18 at 10:30 Glucagon (Glucagen) 1 mg Q15M PRN IM DECREASED GLUCOSE; Start 12/15/18 at 10:30 Glucose (Glutose) 15 gm Q15M PRN BUCCAL DECREASED GLUCOSE; Start 12/15/18 at 10:30 SMITA BERMUDEZ NP Dec 15, 2018 17:12
[2018-12-15] MEDS: INSULIN ASPART [NOVOLOG] 3 ML PEN SC SCH ×2 (18:09→20:15)
--- NOTE | 2018-12-15 19:25 | NUR ---
END OF SHIFT NOTE: Pt went down for HIDA scan today. Results reviewed by Leela ORTIZ, NPO d/c, pt started on clear liquid diet, no plans for surgery currently. AccuChjenny ONEILS added. VSS, call purdy within reach, hourly rounding maintained.
[2018-12-15 19:35] VITALS: BP 141/71; PULSE 80; RESP 18
[2018-12-15] MEDS: ATORVASTATIN 80 MG TAB PO SCH (20:16)
[2018-12-15] MEDS: INSULIN GLARGINE [LANTus] (100 UNITS/ML) SYG SC SCH (20:16)
[2018-12-15] MEDS: ONDANSETRON 4 MG INJ IV PRN (20:21)
[2018-12-15] MEDS: HYDROmorphONE 0.5 MG/0.5 ML SYG IV PRN (20:21)
[2018-12-15] MEDS ORDERED: ATORVASTATIN 80 MG TAB PO SCH (21:00)
[2018-12-16 01:47] VITALS: BP 116/65; PULSE 70; RESP 18
[2018-12-16] MEDS: CEFTRIAXONE 1 GM/50 ML (PMX) 50 ML IVPB SCH (02:33)
[2018-12-16] MEDS: ACCU-CHEK XX SCH (02:33)
[2018-12-16] MEDS: SOD CHLORIDE 0.9% 1,000 ML IV SCH ×3 (02:48→16:07)
--- NOTE | 2018-12-16 06:40 | NUR ---
NRSG NOTE: PT IN BED, ASLEEP, EASILY AROUSED. AXO4. NO ACUTE DISTRESS NOTED. NO SOB. VSS. PAIN MGMT EFFECTIVE. NO FURTHER EPISODES OF N/V DURING SHIFT. ON CLEAR LIQUID DIET, CONTINUE PLAN TO ADVANCE DIET AFTER BREAKFAST. PT RESTING COMFORTABLY.
[2018-12-16] MEDS: ONDANSETRON 4 MG INJ IV PRN ×2 (06:57→16:09)
[2018-12-16] MEDS: HYDROmorphONE 0.5 MG/0.5 ML SYG IV PRN ×3 (06:57→16:06)
[2018-12-16 07:16] VITALS: BP 122/59; PULSE 68; RESP 14
--- NOTE | 2018-12-16 08:00 | NUR ---
PT RECEIVED IN BED. A,A,OX4. NOTIN ANY ACUTE DISTRESS. DENIES ANY PAIN AT THIS TIME. THE PLAN OF CARE DISCUSSED W/ THE PT, VERBALIZED UNDERSTANDING. CALL LIGHT IN REACH. PT ENCOURAGED TO CALL FOR ASSISTANCE. WILL CONT. MONITORING. WILL CONT. W/ THE PLAN OF CARE.
[2018-12-16] MEDS: INSULIN ASPART [NOVOLOG] 3 ML PEN SC SCH ×4 (08:28→20:48)
--- NOTE | 2018-12-16 09:12 | PN ---
Date/Time of Note Date/Time of Note DATE: 12/16/18 TIME: 09:10 Assessment/Plan VTE Prophylaxis Risk score (from Nsg)>0 risk: 1 SCD applied (from Nsg): Yes Pharmacological prophylaxis: NA/contraindicated Pharm contraindication: low risk/ambulating Lines/Catheters IV Catheter Type (from Nrsg): Peripheral IV Assessment/Plan Hospital Course SUBJECTIVE: Continues to have postprandial abdominal pain. Denies any nausea vomiting. OBJECTIVE: Physical Exam General: Adequately build 58 year-old female lying in bed in no apparent distress. HEENT: Normocephalic, atraumatic. Eyes: Anicteric sclerae, conjunctivae clear. ENT: Nasal septum midline, oral mucosa moist. Neck supple. Respiratory: Bilaterally clear breath sounds. No use of accessory muscles of respiration. No adventitious breath sounds. Cardiovascular: S1, S2 heard. Regular rate and rhythm. Abdomen: Soft and nondistended. Right upper and lower quadrant tenderness. Bowel sounds positive in all 4 quadrants. Genitourinary: Deferred. Extremities: No cyanosis, no clubbing, no edema. Peripheral pulses palpable. Neurologic: Cranial nerves II through XII grossly intact. The patient is awake, alert, and oriented. Skin: Normal skin turgor. No skin rashes. Labs & Vitals per chart ASSESSMENT & PLAN This is a 58-year-old female with past medical history of diabetes mellitus and history of ovarian tumor status post removal. The patient has been to multiple hospitals recently because of abdominal pain. The patient came to [facility] emergency room because of continuous right upper quadrant abdominal pain with associated nausea and diarrhea. There was no reported fevers or chills. In the emergency room, the patient underwent a gallbladder ultrasound that was showing cholelithiasis with hepatic steatosis. CT scan of the abdomen and pelvis also showed cholelithiasis without CT evidence of acute cholecystitis. The patient was admitted to inpatient setting for further treatment and evaluation. 1. Symptomatic cholelithiasis. -Continue pain control -Continue IV fluids. -HIDA showing gallbladder visualization at 25 minutes. -Started on clear liquid diet. Continues to have postprandial pain. -General surgery following. 2. Positive urinalysis. -On empiric antibiotics. -Await final cultures. 3. Diabetes mellitus. -Hemoglobin A1c 10.9. -Continue the patient on sliding scale insulin along with basal insulin. 4. Hyperthyroidism. -?New onset. -Obtain endocrinology consult. 5. Fluids, electrolytes, and nutrition. -Clear liquid diet. -IV fluids. 6.DVT prophylaxis. -Bilateral SCDs. 7. Plan. -Continue pain control. -Await further surgical recommendations. -Endocrinology consult. The patient was seen in collaboration with Dr. Ayala. Result Diagram: 12/16/18 0435 12/16/18 0435 Results 24hrs Laboratory Tests Test 12/15/18 15:18 12/15/18 18:06 12/15/18 20:07 12/16/18 02:33 Bedside Glucose 162 166 235 H 153 Test 12/16/18 04:35 12/16/18 08:26 White Blood Count 7.2 Red Blood Count 3.69 L Hemoglobin 10.9 L Hematocrit 33.5 L Mean Corpuscular 90.8 Volume Mean Corpuscular 29.5 Hemoglobin Mean Corpuscular 32.5 Hemoglobin Concent Red Cell Distribution 12.5 Width Platelet Count 413 Mean Platelet Volume 10.5 H Immature Granulocytes 0.600 H % Neutrophils % 57.0 Lymphocytes % 31.9 Monocytes % 8.6 Eosinophils % 1.5 Basophils % 0.4 Nucleated Red Blood 0.0 Cells % Immature Granulocytes 0.040 H # Neutrophils # 4.1 Lymphocytes # 2.3 Monocytes # 0.6 Eosinophils # 0.1 Basophils # 0.0 Nucleated Red Blood 0.0 Cells # Sodium Level 138 Potassium Level 3.7 Chloride Level 105 Carbon Dioxide Level 25 Anion Gap 8 Blood Urea Nitrogen 5 L Creatinine 0.44 Est Glomerular > 60 Filtrat Rate mL/min Glucose Level 165 # Calcium Level 9.1 Phosphorus Level 3.9 Magnesium Level 2.3 Total Bilirubin 0.1 L Direct Bilirubin 0.00 Indirect Bilirubin 0.1 Aspartate Amino 31 Transf (AST/SGOT) Alanine 33 Aminotransferase (ALT /SGPT) Alkaline Phosphatase 103 Total Protein 6.5 Albumin 3.2 L Globulin 3.30 H Albumin/Globulin 0.96 Ratio Bedside Glucose 165 Exam/Review of Systems Exam Vitals Vital Signs Date Temp Pulse Resp B/P (MAP) Pulse Ox O2 O2 Flow FiO2 Time Delivery Rate 12/16/18 98.0 68 14 122/59 100 Room Air 07:16 (80) Intake and Output 12/15/18 12/15/18 12/16/18 1515:00 23:00 07:00 IntakeIntake Total 1900 ml 850 ml BalanceBalance 1900 ml 850 ml Results Results 24hrs Laboratory Tests Test 12/15/18 15:18 12/15/18 18:06 12/15/18 20:07 12/16/18 02:33 Bedside Glucose 162 166 235 H 153 Test 12/16/18 04:35 12/16/18 08:26 White Blood Count 7.2 Red Blood Count 3.69 L Hemoglobin 10.9 L Hematocrit 33.5 L Mean Corpuscular 90.8 Volume Mean Corpuscular 29.5 Hemoglobin Mean Corpuscular 32.5 Hemoglobin Concent Red Cell Distribution 12.5 Width Platelet Count 413 Mean Platelet Volume 10.5 H Immature Granulocytes 0.600 H % Neutrophils % 57.0 Lymphocytes % 31.9 Monocytes % 8.6 Eosinophils % 1.5 Basophils % 0.4 Nucleated Red Blood 0.0 Cells % Immature Granulocytes 0.040 H # Neutrophils # 4.1 Lymphocytes # 2.3 Monocytes # 0.6 Eosinophils # 0.1 Basophils # 0.0 Nucleated Red Blood 0.0 Cells # Sodium Level 138 Potassium Level 3.7 Chloride Level 105 Carbon Dioxide Level 25 Anion Gap 8 Blood Urea Nitrogen 5 L Creatinine 0.44 Est Glomerular > 60 Filtrat Rate mL/min Glucose Level 165 # Calcium Level 9.1 Phosphorus Level 3.9 Magnesium Level 2.3 Total Bilirubin 0.1 L Direct Bilirubin 0.00 Indirect Bilirubin 0.1 Aspartate Amino 31 Transf (AST/SGOT) Alanine 33 Aminotransferase (ALT /SGPT) Alkaline Phosphatase 103 Total Protein 6.5 Albumin 3.2 L Globulin 3.30 H Albumin/Globulin 0.96 Ratio Bedside Glucose 165 Medications Medication Current Medications Sodium Chloride 1,000 ml @ 100 mls/hr Q10H IV Last administered on 12/16/18at 06:53; Admin Dose 100 MLS/HR; Start 12/14/18 at 21:30 IV Flush (NS 3 ml) 3 ml PER PROTOCOL IV ; Start 12/14/18 at 21:30 Ondansetron HCl (Zofran Inj) 4 mg Q6H PRN IV NAUSEA/VOMITING Last administered on 12/16/18at 06:57; Admin Dose 4 MG; Start 12/14/18 at 21:30 Hydromorphone HCl (Dilaudid) 0.5 mg Q4H PRN IV .SEVERE PAIN 7-10 Last administered on 12/16/18 06:57; Admin Dose 0.5 MG; Start 12/14/18 at 21:30 Docusate Sodium (Colace) 100 mg Q12H PRN PO .CONSTIPATION; Start 12/14/18 at 21:30 Bisacodyl (Dulcolax) 5 mg DAILY PRN PO .CONSTIPATION; Start 12/14/18 at 21:30 Atorvastatin Calcium (Lipitor) 80 mg QHS PO Last administered on 12/15/18 20:16; Admin Dose 80 MG; Start 12/14/18 at 22:00 Ceftriaxone Sodium 50 ml @ 100 mls/hr Q24H IVPB Last administered on 12/16/18 02:33; Admin Dose 100 MLS/HR; Start 12/15/18 at 02:30 Insulin Glargine (Lantus) 9 units DAILY@2000 SC Last administered on 12/15/18 20:16; Admin Dose 9 UNITS; Start 12/15/18 at 20:00 Miscellaneous Information 1 ea NOTE XX ; Start 12/15/18 at 10:30 Glucose (Glutose) 15 gm Q15M PRN PO DECREASED GLUCOSE; Start 12/15/18 at 10:30 Glucose (Glutose) 22.5 gm Q15M PRN PO DECREASED GLUCOSE; Start 12/15/18 at 10:30 Dextrose (D50w Syringe) 25 ml Q15M PRN IV DECREASED GLUCOSE; Start 12/15/18 at 10:30 Dextrose (D50w Syringe) 50 ml Q15M PRN IV DECREASED GLUCOSE; Start 12/15/18 at 10:30 Glucagon (Glucagen) 1 mg Q15M PRN IM DECREASED GLUCOSE; Start 12/15/18 at 10:30 Glucose (Glutose) 15 gm Q15M PRN BUCCAL DECREASED GLUCOSE; Start 12/15/18 at 10:30 Diagnostic Test (Pha) (Accu-Chek) 1 ea 02 XX Last administered on 12/16/18 02:33; Admin Dose 1 EA; Start 12/16/18 at 02:00 Insulin Aspart (Novolog Insulin Pen) NOVOLOG *MILD* ALGORITHM WITH MEALS BEDTIME SC Last administered on 12/16/18 08:28; Admin Dose 1 UNIT; Start 12/15/18 at 17:55 MINA REID NP Dec 16, 2018 09:12
--- NOTE | 2018-12-16 10:08 | NUR ---
Nutrition Notes: Urdu speaker. Continues w/abd pain per nursing. Started clear liquid diet at dinner yesterday, 50% PO. Plan to advance diet noted by nursing this am. Pt w/Hgb A1C 10.9. Visited pt's room, family at bedside and helped translate. Offered pt education on DM, pt receptive. Discussed foods to eat for DM diet and gave a h/o w/a visual of a how a meal should be portioned. Pt had no questions at this time. RD Recommendation 1. Would recommend to advance diet to 1500 crystal CHO control, soft texture.
--- NOTE | 2018-12-16 13:35 | CONS ---
Assessment/Plan Assessment/Plan Hospital Course (Demo Recall) New onset hyperthyroidism -mildly hyperthyroid -will check TSH receptor antibody -start methimazole 10mg po daily -side effects of methimazole including rash, liver injury and suppression of WBC explained to patient. -will follow with you Consultation Date/Type/Reason Admit Date/Time Date/Time of Note DATE: 12/16/18 TIME: 13:12 Hx of Present Illness 58-year-old female with type 2 DM, cholelithiasis presented with complaints of 1 month of right-sided abdominal pain radiating to the right flank, she is currently admitted for symptomatic cholelithiasis. Blood test here showed TFT consistent with mild hyperthyroidism and Endocrine service has been consulted for such. She denied any prior history of thyroid disorder. She denies any fevers or chills. She has menopause about 10 years ago, new onset diarrhea prior to admission but baseline no change in bowel movement. She's lost about 20 lbs unintentionally in the past month. She stated occasional palpitation when she coughs. Constitutional: No fever, No chills, No sweats. Eye: No discharge. No icterus ENMT: No decreased hearing, no ear pain Genitourinary: No dysuria. Respiratory: No shortness of breath, cough or sputum production Cardiovascular: No chest pain, No palpitations. Gastrointestinal: Abdominal pain, nausea and diarrhea Integumentary: No rash, No pruritus Neurologic: Alert and oriented, No confusion. Psychiatric: Not delusional. No anxiety Past Medical History Medical History: diabetes, gallstones Home Meds Reported Medications Ondansetron Hcl* (Zofran*) 4 Mg Tablet, 4 MG PO Q8, TAB 12/14/18 Tramadol Hcl* (Ultram*) 50 Mg Tablet, 50 MG PO Q12H PRN for PAIN, TAB 12/14/18 Metformin Hcl* (Metformin Hcl*) 500 Mg Tablet, 500 MG PO WITH BREAKFAST DINNE, #60 TAB 12/14/18 Atorvastatin* (Atorvastatin*) 80 Mg Tablet, 80 MG PO QHS, #30 TAB 12/14/18 Medications Current Medications Sodium Chloride 1,000 ml @ 100 mls/hr Q10H IV Last administered on 12/16/18at 06:53; Admin Dose 100 MLS/HR; Start 12/14/18 at 21:30 IV Flush (NS 3 ml) 3 ml PER PROTOCOL IV ; Start 12/14/18 at 21:30 Ondansetron HCl (Zofran Inj) 4 mg Q6H PRN IV NAUSEA/VOMITING Last administered on 12/16/18at 06:57; Admin Dose 4 MG; Start 12/14/18 at 21:30 Hydromorphone HCl (Dilaudid) 0.5 mg Q4H PRN IV .SEVERE PAIN 7-10 Last administered on 12/16/18at 12:13; Admin Dose 0.5 MG; Start 12/14/18 at 21:30 Docusate Sodium (Colace) 100 mg Q12H PRN PO .CONSTIPATION; Start 12/14/18 at 21:30 Bisacodyl (Dulcolax) 5 mg DAILY PRN PO .CONSTIPATION; Start 12/14/18 at 21:30 Atorvastatin Calcium (Lipitor) 80 mg QHS PO Last administered on 12/15/18at 20:16; Admin Dose 80 MG; Start 12/14/18 at 22:00 Ceftriaxone Sodium 50 ml @ 100 mls/hr Q24H IVPB Last administered on 12/16/18at 02:33; Admin Dose 100 MLS/HR; Start 12/15/18 at 02:30 Insulin Glargine (Lantus) 9 units DAILY@2000 SC Last administered on 12/15/18at 20:16; Admin Dose 9 UNITS; Start 12/15/18 at 20:00 Miscellaneous Information 1 ea NOTE XX ; Start 12/15/18 at 10:30 Glucose (Glutose) 15 gm Q15M PRN PO DECREASED GLUCOSE; Start 12/15/18 at 10:30 Glucose (Glutose) 22.5 gm Q15M PRN PO DECREASED GLUCOSE; Start 12/15/18 at 10:30 Dextrose (D50w Syringe) 25 ml Q15M PRN IV DECREASED GLUCOSE; Start 12/15/18 at 10:30 Dextrose (D50w Syringe) 50 ml Q15M PRN IV DECREASED GLUCOSE; Start 12/15/18 at 10:30 Glucagon (Glucagen) 1 mg Q15M PRN IM DECREASED GLUCOSE; Start 12/15/18 at 10:30 Glucose (Glutose) 15 gm Q15M PRN BUCCAL DECREASED GLUCOSE; Start 12/15/18 at 10:30 Diagnostic Test (Pha) (Accu-Chek) 1 ea 02 XX Last administered on 12/16/18at 02:33; Admin Dose 1 EA; Start 12/16/18 at 02:00 Insulin Aspart (Novolog Insulin Pen) NOVOLOG *MILD* ALGORITHM WITH MEALS BEDTIME SC Last administered on 12/16/18at 12:17; Admin Dose 1 UNIT; Start 12/15/18 at 17:55 Allergies: Coded Allergies: No Known Allergy (Unverified , 12/14/18) Past Surgical History Past Surgical Hx: other (oopherectomy (unsure which side)) Family History Significant Family History: other (no family history of thyroid disorder) Social History Alcohol Use: none Smoking Status: Never smoker Drug Use: none Exam/Review of Systems Exam Vitals Vital Signs Date Temp Pulse Resp B/P (MAP) Pulse Ox O2 O2 Flow FiO2 Time Delivery Rate 12/16/18 98.0 68 14 122/59 100 Room Air 07:16 (80) Intake and Output 12/15/18 12/15/18 12/16/18 1515:00 23:00 07:00 IntakeIntake Total 1900 ml 850 ml BalanceBalance 1900 ml 850 ml Exam General: Comfortable in appearance, not in acute distress. Skin appropriate for ethnicity Eye: Extraocular movements are intact, Normal conjunctiva. No exothalmos or lid lag HENT: Normocephalic, atraumatic. No thyromegaly Respiratory: Respirations are non-labored, Breath sounds are equal, Symmetrical chest wall expansion. Cardiovascular: S1, S2. No murmur. No LE edema Gastrointestinal: Soft, Non-tender, Non-distended, Normal bowel sounds. Integumentary: Warm to touch. Neurologic: Alert, Oriented. No hand tremor Cognition and Speech: Speech clear and coherent, Functional cognition intact. Psychiatric: Cooperative, Appropriate mood & affect. Results Result Diagram: 12/16/185 12/16/18 043 Results 24hrs Laboratory Tests Test 12/15/18 15:18 12/15/18 18:06 12/15/18 20:07 12/16/18 02:33 Bedside Glucose 162 166 235 H 153 Test 12/16/18 04:35 12/16/18 08:26 12/16/18 12:16 White Blood Count 7.2 Red Blood Count 3.69 L Hemoglobin 10.9 L Hematocrit 33.5 L Mean Corpuscular 90.8 Volume Mean Corpuscular 29.5 Hemoglobin Mean Corpuscular 32.5 Hemoglobin Concent Red Cell 12.5 Distribution Width Platelet Count 413 Mean Platelet Volume 10.5 H Immature 0.600 H Granulocytes % Neutrophils % 57.0 Lymphocytes % 31.9 Monocytes % 8.6 Eosinophils % 1.5 Basophils % 0.4 Nucleated Red Blood 0.0 Cells % Immature 0.040 H Granulocytes # Neutrophils # 4.1 Lymphocytes # 2.3 Monocytes # 0.6 Eosinophils # 0.1 Basophils # 0.0 Nucleated Red Blood 0.0 Cells # Sodium Level 138 Potassium Level 3.7 Chloride Level 105 Carbon Dioxide Level 25 Anion Gap 8 Blood Urea Nitrogen 5 L Creatinine 0.44 Est Glomerular > 60 Filtrat Rate mL/min Glucose Level 165 # Calcium Level 9.1 Phosphorus Level 3.9 Magnesium Level 2.3 Total Bilirubin 0.1 L Direct Bilirubin 0.00 Indirect Bilirubin 0.1 Aspartate Amino 31 Transf (AST/SGOT) Alanine 33 Aminotransferase (AL T/SGPT) Alkaline Phosphatase 103 Total Protein 6.5 Albumin 3.2 L Globulin 3.30 H Albumin/Globulin 0.96 Ratio Thyroid Stimulating 0.057 L Hormone (TSH) Free Thyroxine 1.99 H Bedside Glucose 165 177 Medications Medication Current Medications Sodium Chloride 1,000 ml @ 100 mls/hr Q10H IV Last administered on 12/16/18at 06:53; Admin Dose 100 MLS/HR; Start 12/14/18 at 21:30 IV Flush (NS 3 ml) 3 ml PER PROTOCOL IV ; Start 12/14/18 at 21:30 Ondansetron HCl (Zofran Inj) 4 mg Q6H PRN IV NAUSEA/VOMITING Last administered on 12/16/18at 06:57; Admin Dose 4 MG; Start 12/14/18 at 21:30 Hydromorphone HCl (Dilaudid) 0.5 mg Q4H PRN IV .SEVERE PAIN 7-10 Last administered on 12/16/18at 12:13; Admin Dose 0.5 MG; Start 12/14/18 at 21:30 Docusate Sodium (Colace) 100 mg Q12H PRN PO .CONSTIPATION; Start 12/14/18 at 21:30 Bisacodyl (Dulcolax) 5 mg DAILY PRN PO .CONSTIPATION; Start 12/14/18 at 21:30 Atorvastatin Calcium (Lipitor) 80 mg QHS PO Last administered on 12/15/18at 20:16; Admin Dose 80 MG; Start 12/14/18 at 22:00 Ceftriaxone Sodium 50 ml @ 100 mls/hr Q24H IVPB Last administered on 12/16/18at 02:33; Admin Dose 100 MLS/HR; Start 12/15/18 at 02:30 Insulin Glargine (Lantus) 9 units DAILY@2000 SC Last administered on 12/15/18at 20:16; Admin Dose 9 UNITS; Start 12/15/18 at 20:00 Miscellaneous Information 1 ea NOTE XX ; Start 12/15/18 at 10:30 Glucose (Glutose) 15 gm Q15M PRN PO DECREASED GLUCOSE; Start 12/15/18 at 10:30 Glucose (Glutose) 22.5 gm Q15M PRN PO DECREASED GLUCOSE; Start 12/15/18 at 10:30 Dextrose (D50w Syringe) 25 ml Q15M PRN IV DECREASED GLUCOSE; Start 12/15/18 at 10:30 Dextrose (D50w Syringe) 50 ml Q15M PRN IV DECREASED GLUCOSE; Start 12/15/18 at 10:30 Glucagon (Glucagen) 1 mg Q15M PRN IM DECREASED GLUCOSE; Start 12/15/18 at 10:30 Glucose (Glutose) 15 gm Q15M PRN BUCCAL DECREASED GLUCOSE; Start 12/15/18 at 10:30 Diagnostic Test (Pha) (Accu-Chek) 1 ea 02 XX Last administered on 12/16/18at 02:33; Admin Dose 1 EA; Start 12/16/18 at 02:00 Insulin Aspart (Novolog Insulin Pen) NOVOLOG *MILD* ALGORITHM WITH MEALS BEDTIME SC Last administered on 12/16/18at 12:17; Admin Dose 1 UNIT; Start 12/15/18 at 17:55 LACEY MCKEON MD Dec 16, 2018 13:29
[2018-12-16] MEDS: METHIMAZOLE 5 MG TAB PO SCH (14:16)
[2018-12-16 14:52] VITALS: BP 141/73; PULSE 70; RESP 16
--- NOTE | 2018-12-16 15:58 | PN ---
Date/Time of Note Date/Time of Note DATE: 12/16/18 TIME: 15:55 Assessment/Plan Lines/Catheters IV Catheter Type (from Nrs): Peripheral IV Assessment/Plan Chief Complaint/Hosp Course 1. Symptomatic cholelithiasis:HIDA noted -Lap melecio> will schedule 2. Abdominal pain: 2/2? #1 versus other -As above -Pain management 3.Thrombocytosis: -Trend -Further workup if persistent 4. Normocytic normochromic anemia: -Monitor and transfuse as needed 5. Hyponatremia: -Judicious fluid correction 6. Controlled diabetes: -Glucose control 7. Hyperthyroidism: -Med management 8. Hypoalbuminemia: -Eventual nutrition optimization 9. Pyuria -Frequent bladder emptying Thank you. Patient seen and examined in collaboration with Dr. Josh Hagen. Subjective 24 Hr Interval Summary Continues to have abdominal pain. No fevers, chills, sob, congested cough, cp, palpitations, dinero, dizziness, nausea, vomiting, diarrhea, dysuria. Exam/Review of Systems Vital Signs Vitals Vital Signs Date Temp Pulse Resp B/P (MAP) Pulse Ox O2 O2 Flow FiO2 Time Delivery Rate 12/16/18 97.9 70 16 141/73 99 Room Air 14:52 (95) Intake and Output 12/15/18 12/15/18 12/16/18 1515:00 23:00 07:00 IntakeIntake Total 1900 ml 850 ml BalanceBalance 1900 ml 850 ml Exam Free Text/Dictation Constitutional: alert, oriented Psych: nl mood/affect, anxiety (Minimal) Head: normocephalic, atraumatic Eyes: nl conjunctiva, EOMI, nl lids, nl sclera ENMT: nl external ears & nose, nl lips & teeth, mucosa pink and moist Neck: supple, non-tender Respiratory: normal air movement; No congested cough Cardiovascular: regular rate and rhythm, nl pulses Gastrointestinal: soft, tender (Generalized); No distended, No firm Musculoskeletal: nl extremities to inspection, nl gait and stance Extremities: normal pulses; No edema Neurological: nl mental status, nl speech, nl strength Skin: nl turgor; No rash or lesions Lymph: nl lymph nodes Results Result Diagram: 12/16/1843412/16/18 043 SMITA BERMUDEZ NP Dec 16, 2018 15:57
--- NOTE | 2018-12-16 18:56 | NUR ---
EOSS: PT'S HEMODYNAMICS AND RESPIR. STATUS ARE STABLE. NO COMPLICATIONS. NO CHANGES IN CONDITION. PAIN MGMT IS EFFECTIVE. WILL CONT.MONITORING. WILL CONT. W/ THE PLAN OF CARE.
[2018-12-16 20:34] VITALS: BP 137/66; PULSE 78; RESP 18
[2018-12-16] MEDS: ATORVASTATIN 80 MG TAB PO SCH (20:45)
[2018-12-16] MEDS: INSULIN GLARGINE [LANTus] (100 UNITS/ML) SYG SC SCH (20:48)
[2018-12-17] MEDS: ACCU-CHEK XX SCH (02:00)
[2018-12-17] MEDS: SOD CHLORIDE 0.9% 1,000 ML IV SCH ×2 (02:09→16:22)
[2018-12-17 02:15] VITALS: BP 112/56; PULSE 76; RESP 19
[2018-12-17] MEDS: CEFTRIAXONE 1 GM/50 ML (PMX) 50 ML IVPB SCH (03:57)
--- NOTE | 2018-12-17 06:14 | NUR ---
END OF SHIFT REPORTS: PATIENT RESTED THROUGHOUT THE NIGHT. NO COMPLAIN OF PAIN.WALKED TO THE BATHROOM. NPO POST MN, PATIENT IS AWARE. HEMODYNAMICS AND RESPIRATORY STATUS ARE STABLE.
[2018-12-17 07:50] VITALS: BP 126/68; PULSE 80; RESP 17
[2018-12-17] MEDS: METHIMAZOLE 5 MG TAB PO SCH (09:11)
[2018-12-17] MEDS: INSULIN ASPART [NOVOLOG] 3 ML PEN SC SCH ×4 (09:14→21:00)
--- NOTE | 2018-12-17 12:10 | PREAC ---
Date/Time of Note Date/Time of Note DATE: 12/17/18 TIME: 12:08 Anesthesia Eval and Record Evaluation Time Pre-Procedure Interview DATE: 12/17/18 TIME: 12:08 Age 58 Sex female NPO: 8 hrs Preoperative diagnosis symptomatic cholelithiasis Planned procedure Laparoscopic cholecystectomy Past Medical History Past Medical History: Includes Cardio: Dyslipidemia Endo: Diabetes Surgery & Anesthesia Issues No known issue Meds Anticoagulation: No Beta Yany within 24 hr: No Reason Beta Yany not given: Pt. not on B-Yany Reported Medications Ondansetron Hcl* (Zofran*) 4 Mg Tablet, 4 MG PO Q8, TAB 12/14/18 Tramadol Hcl* (Ultram*) 50 Mg Tablet, 50 MG PO Q12H PRN for PAIN, TAB 12/14/18 Metformin Hcl* (Metformin Hcl*) 500 Mg Tablet, 500 MG PO WITH BREAKFAST DINNE, #60 TAB 12/14/18 Atorvastatin* (Atorvastatin*) 80 Mg Tablet, 80 MG PO QHS, #30 TAB 12/14/18 Current Medications Sodium Chloride 1,000 ml @ 100 mls/hr Q10H IV Last administered on 12/17/18at 02:09; Admin Dose 100 MLS/HR; Start 12/14/18 at 21:30 IV Flush (NS 3 ml) 3 ml PER PROTOCOL IV ; Start 12/14/18 at 21:30 Ondansetron HCl (Zofran Inj) 4 mg Q6H PRN IV NAUSEA/VOMITING Last administered on 12/16/18at 16:09; Admin Dose 4 MG; Start 12/14/18 at 21:30 Hydromorphone HCl (Dilaudid) 0.5 mg Q4H PRN IV .SEVERE PAIN 7-10 Last administered on 12/16/18at 16:06; Admin Dose 0.5 MG; Start 12/14/18 at 21:30 Docusate Sodium (Colace) 100 mg Q12H PRN PO .CONSTIPATION; Start 12/14/18 at 21:30 Bisacodyl (Dulcolax) 5 mg DAILY PRN PO .CONSTIPATION; Start 12/14/18 at 21:30 Atorvastatin Calcium (Lipitor) 80 mg QHS PO Last administered on 12/16/18at 20:45; Admin Dose 80 MG; Start 12/14/18 at 22:00 Ceftriaxone Sodium 50 ml @ 100 mls/hr Q24H IVPB Last administered on 12/17/18at 03:57; Admin Dose 100 MLS/HR; Start 12/15/18 at 02:30 Insulin Glargine (Lantus) 9 units DAILY@2000 SC Last administered on 12/16/18at 20:48; Admin Dose 9 UNITS; Start 12/15/18 at 20:00 Miscellaneous Information 1 ea NOTE XX ; Start 12/15/18 at 10:30 Glucose (Glutose) 15 gm Q15M PRN PO DECREASED GLUCOSE; Start 12/15/18 at 10:30 Glucose (Glutose) 22.5 gm Q15M PRN PO DECREASED GLUCOSE; Start 12/15/18 at 10:30 Dextrose (D50w Syringe) 25 ml Q15M PRN IV DECREASED GLUCOSE; Start 12/15/18 at 10:30 Dextrose (D50w Syringe) 50 ml Q15M PRN IV DECREASED GLUCOSE; Start 12/15/18 at 10:30 Glucagon (Glucagen) 1 mg Q15M PRN IM DECREASED GLUCOSE; Start 12/15/18 at 10:30 Glucose (Glutose) 15 gm Q15M PRN BUCCAL DECREASED GLUCOSE; Start 12/15/18 at 10:30 Diagnostic Test (Pha) (Accu-Chek) 1 ea 02 XX Last administered on 12/16/18at 02:33; Admin Dose 1 EA; Start 12/16/18 at 02:00 Insulin Aspart (Novolog Insulin Pen) NOVOLOG *MILD* ALGORITHM WITH MEALS BEDTIME SC Last administered on 12/16/18at 12:17; Admin Dose 1 UNIT; Start 12/15/18 at 17:55 Methimazole (Tapazole) 10 mg DAILY PO Last administered on 12/17/18at 09:11; Admin Dose 10 MG; Start 12/16/18 at 13:30 Meds reviewed: Yes Allergies Coded Allergies: No Known Allergy (Unverified , 12/14/18) Allergies Reviewed: Yes Labs/Studies Labs Reviewed: Reviewed by anesthesiologist Result Diagram: 12/17/188 12/17/188 Laboratory Tests 12/17/18 04:28 test: N/A Pre-procedure Exam Last vitals Vital Signs Date Temp Pulse Resp B/P (MAP) Pulse Ox O2 O2 Flow FiO2 Time Delivery Rate 12/17/18 98.2 80 17 126/68 97 07:50 (87) 12/16/18 Room Air 14:52 Airway: Adequate mouth opening Mallampati: Mallampati II Teeth: Normal Lung: Normal Heart: Normal ASA Physical Status ASA physical status: 2 Emergency: None Planned Anesthetic General/MAC: ETT Pre-operative Attestations Prior to commencing anesthesia and surgery, the patient was re-evaluated, there was verification of: *The patient's identity *The results of appropriate recent lab work and preoperative vital signs *The above evaluation not changing prior to induction *Anesthetic plan, risk benefits, alternative and complications discussed with patient/family; questions answered; patient/family understands, accepts and wishes to proceed. CARL CARDENAS Dec 17, 2018 12:10
--- NOTE | 2018-12-17 13:29 | PN ---
Date/Time of Note Date/Time of Note DATE: 12/17/18 TIME: 13:27 Assessment/Plan Lines/Catheters IV Catheter Type (from [facility]): [place]ine [facility] Assessment/Plan Chief Complaint/Hosp Course 1. Symptomatic cholelithiasis:HIDA noted -Lap melecio tomorrow -N.p.o. -IV fluids 2. Abdominal pain: 12/08? #1 versus other: -As above -Pain management 3.Thrombocytosis: -Trend -Further workup if persistent 4. Normocytic normochromic anemia: -Monitor and transfuse as needed 5. Hyponatremia: Resolved -Judicious fluid correction 6. Controlled diabetes: -Glucose control 7. Hyperthyroidism: -Med management 8. Hypoalbuminemia: -Eventual nutrition optimization 9. Pyuria -Frequent bladder emptying Thank you. Patient seen and examined in collaboration with Dr. Josh Hagen. Subjective 24 Hr Interval Summary Continues to have abdominal pain. Pending OR tomorrow. No fevers, chills, sob, congested cough, cp, palpitations, dinero, dizziness, nausea, vomiting, diarrhea, dysuria. Exam/Review of Systems Vital Signs Vitals Vital Signs Date Temp Pulse Resp B/P (MAP) Pulse Ox O2 O2 Flow FiO2 Time Delivery Rate 12/17/18 98.2 80 17 126/68 97 07:50 (87) 12/16/18 Room Air 14:52 Intake and Output 12/16/18 12/16/18 12/17/18 1515:00 23:00 07:00 IntakeIntake Total 350 ml 1380 ml 1250 ml BalanceBalance 350 ml 1380 ml 1250 ml Exam Free Text/Dictation Constitutional: alert, oriented Psych: nl mood/affect, anxiety (Minimal) Head: normocephalic, atraumatic Eyes: nl conjunctiva, EOMI, nl lids, nl sclera ENMT: nl external ears & nose, nl lips & teeth, mucosa pink and moist Neck: supple, non-tender Respiratory: normal air movement; No congested cough Cardiovascular: regular rate and rhythm, nl pulses Gastrointestinal: soft, tender (Generalized); No distended, No firm Musculoskeletal: nl extremities to inspection, nl gait and stance Extremities: normal pulses; No edema Neurological: nl mental status, nl speech, nl strength Skin: nl turgor; No rash or lesions Lymph: nl lymph nodes Results Result Diagram: 12/17/18 0428 12/17/18 0428 SMITA BERMUDEZ NP Dec 17, 2018 13:29
[2018-12-17 13:30] VITALS: BP 130/62; PULSE 78; RESP 18
[2018-12-17] MEDS: HYDROmorphONE 0.5 MG/0.5 ML SYG IV PRN ×2 (14:16→20:26)
[2018-12-17] MEDS: ONDANSETRON 4 MG INJ IV PRN ×2 (15:30→21:15)
--- NOTE | 2018-12-17 16:27 | PN ---
Date/Time of Note Date/Time of Note DATE: 12/17/18 TIME: 16:25 Assessment/Plan VTE Prophylaxis Risk score (from Ns)>0 risk: 1 SCD applied (from [facility]): No SCD contraindicated: patient refusal Pharmacological prophylaxis: LMWH Pharm contraindication: surgical contra Lines/Catheters IV [facility] Type (from [facility]): Peripheral IV Assessment/Plan Hospital Course Assessment and plan 1. Symptomatic cholelithiasis, stable. Patient for lap melecio tomorrow Low perioperative risk, may proceed forward to surgery from medical standpoint. 2. Type 2 diabetes/metabolic syndrome 3. Anemia stable 4. Cystitis? 3-day therapy 5. Subclinical hyperparathyroidism Subjective: No events. No fever vomiting Objective: Vital signs stable Physical exam No pallor icterus Regular Clear Bs dimin nt nd no RRG No edema Result Diagram: 12/17/1842712/17/18427 Results 24hrs Laboratory Tests Test 12/16/18 17:37 12/16/18 20:44 12/17/18 01:37 12/17/18 04:28 Bedside Glucose 130 164 124 White Blood Count 6.4 Red Blood Count 3.75 L Hemoglobin 11.2 L Hematocrit 33.7 L Mean Corpuscular 89.9 Volume Mean Corpuscular 29.9 Hemoglobin Mean Corpuscular 33.2 Hemoglobin Concent Red Cell 12.3 Distribution Width Platelet Count 440 H Mean Platelet Volume 10.5 H Immature 0.300 Granulocytes % Neutrophils % 55.7 Lymphocytes % 34.0 Monocytes % 8.6 Eosinophils % 0.8 Basophils % 0.6 Nucleated Red Blood 0.0 Cells % Immature 0.020 Granulocytes # Neutrophils # 3.5 Lymphocytes # 2.2 Monocytes # 0.6 Eosinophils # 0.1 Basophils # 0.0 Nucleated Red Blood 0.0 Cells # Sodium Level 140 Potassium Level 3.7 Chloride Level 110 Carbon Dioxide Level 28 Anion Gap 2 L Blood Urea Nitrogen 3 L Creatinine 0.43 L Est Glomerular > 60 Filtrat Rate mL/min Glucose Level 139 Calcium Level 9.3 Phosphorus Level 4.0 Magnesium Level 2.3 Total Bilirubin 0.3 Direct Bilirubin 0.00 Indirect Bilirubin 0.3 Aspartate Amino 31 Transf (AST/SGOT) Alanine 32 Aminotransferase (AL T/SGPT) Alkaline Phosphatase 94 Total Protein 6.9 Albumin 3.3 Globulin 3.60 H Albumin/Globulin 0.91 Ratio Test 12/17/18 05:18 12/17/18 09:12 12/17/18 12:38 Bedside Glucose 121 127 167 Exam/Review of Systems Exam Vitals Vital Signs Date Temp Pulse Resp B/P (MAP) Pulse Ox O2 O2 Flow FiO2 Time Delivery Rate 12/17/18 98.0 78 18 130/62 94 13:30 (84) 12/16/18 Room Air 14:52 Intake and Output 12/16/18 12/16/18 12/17/18 1515:00 23:00 07:00 IntakeIntake Total 350 ml 1380 ml 1250 ml BalanceBalance 350 ml 1380 ml 1250 ml Results Results 24hrs Laboratory Tests Test 12/16/18 17:37 12/16/18 20:44 12/17/18 01:37 12/17/18 04:28 Bedside Glucose 130 164 124 White Blood Count 6.4 Red Blood Count 3.75 L Hemoglobin 11.2 L Hematocrit 33.7 L Mean Corpuscular 89.9 Volume Mean Corpuscular 29.9 Hemoglobin Mean Corpuscular 33.2 Hemoglobin Concent Red Cell 12.3 Distribution Width Platelet Count 440 H Mean Platelet Volume 10.5 H Immature 0.300 Granulocytes % Neutrophils % 55.7 Lymphocytes % 34.0 Monocytes % 8.6 Eosinophils % 0.8 Basophils % 0.6 Nucleated Red Blood 0.0 Cells % Immature 0.020 Granulocytes # Neutrophils # 3.5 Lymphocytes # 2.2 Monocytes # 0.6 Eosinophils # 0.1 Basophils # 0.0 Nucleated Red Blood 0.0 Cells # Sodium Level 140 Potassium Level 3.7 Chloride Level 110 Carbon Dioxide Level 28 Anion Gap 2 L Blood Urea Nitrogen 3 L Creatinine 0.43 L Est Glomerular > 60 Filtrat Rate mL/min Glucose Level 139 Calcium Level 9.3 Phosphorus Level 4.0 Magnesium Level 2.3 Total Bilirubin 0.3 Direct Bilirubin 0.00 Indirect Bilirubin 0.3 Aspartate Amino 31 Transf (AST/SGOT) Alanine 32 Aminotransferase (AL T/SGPT) Alkaline Phosphatase 94 Total Protein 6.9 Albumin 3.3 Globulin 3.60 H Albumin/Globulin 0.91 Ratio Test 12/17/18 05:18 12/17/18 09:12 12/17/18 12:38 Bedside Glucose 121 127 167 Medications Medication Current Medications Sodium Chloride 1,000 ml @ 100 mls/hr Q10H IV Last administered on 12/17/18 16:22; Admin Dose 100 MLS/HR; Start 12/14/18 at 21:30 IV Flush (NS 3 ml) 3 ml PER PROTOCOL IV ; Start 12/14/18 at 21:30 Ondansetron HCl (Zofran Inj) 4 mg Q6H PRN IV NAUSEA/VOMITING Last administered on 12/17/18at 15:30; Admin Dose 4 MG; Start 12/14/18 at 21:30 Hydromorphone HCl (Dilaudid) 0.5 mg Q4H PRN IV .SEVERE PAIN 7-10 Last administered on 12/17/18 14:16; Admin Dose 0.5 MG; Start 12/14/18 at 21:30 Docusate Sodium (Colace) 100 mg Q12H PRN PO .CONSTIPATION; Start 12/14/18 at 21:30 Bisacodyl (Dulcolax) 5 mg DAILY PRN PO .CONSTIPATION; Start 12/14/18 at 21:30 Atorvastatin Calcium (Lipitor) 80 mg QHS PO Last administered on 12/16/18at 20:45; Admin Dose 80 MG; Start 12/14/18 at 22:00 Ceftriaxone Sodium 50 ml @ 100 mls/hr Q24H IVPB Last administered on 12/17/18at 03:57; Admin Dose 100 MLS/HR; Start 12/15/18 at 02:30 Insulin Glargine (Lantus) 9 units DAILY@2000 SC Last administered on 12/16/18at 20:48; Admin Dose 9 UNITS; Start 12/15/18 at 20:00 Miscellaneous Information 1 ea NOTE XX ; Start 12/15/18 at 10:30 Glucose (Glutose) 15 gm Q15M PRN PO DECREASED GLUCOSE; Start 12/15/18 at 10:30 Glucose (Glutose) 22.5 gm Q15M PRN PO DECREASED GLUCOSE; Start 12/15/18 at 10:30 Dextrose (D50w Syringe) 25 ml Q15M PRN IV DECREASED GLUCOSE; Start 12/15/18 at 10:30 Dextrose (D50w Syringe) 50 ml Q15M PRN IV DECREASED GLUCOSE; Start 12/15/18 at 10:30 Glucagon (Glucagen) 1 mg Q15M PRN IM DECREASED GLUCOSE; Start 2/9/19 at 10:30 Glucose (Glutose) 15 gm Q15M PRN BUCCAL DECREASED GLUCOSE; Start 12/15/18 at 10:30 Diagnostic Test (Pha) (Accu-Chek) 1 ea 02 XX Last administered on 12/16/18at 02:33; Admin Dose 1 EA; Start 12/16/18 at 02:00 Insulin Aspart (Novolog Insulin Pen) NOVOLOG *MILD* ALGORITHM WITH MEALS BEDTIME SC Last administered on 12/17/18at 12:40; Admin Dose 1 UNIT; Start 12/15/18 at 17:55 Methimazole (Tapazole) 10 mg DAILY PO Last administered on 12/17/18at 09:11; Admin Dose 10 MG; Start 12/16/18 at 13:30 NIXON LA MD Dec 17, 2018 16:27
--- NOTE | 2018-12-17 18:53 | NUR ---
END OF SHIFT NOTE: PATIENT'S PAIN MANAGED WITH DILAUDID IVP ONCE IN THIS SHIFT, ZOFRAN GIVEN FOR NAUSEA. PT WAS ABLE TO AMBULATE TO USE TOILET WITH STANDBY ASSIST. PT TOLERATED CLEAR DIET WELL, RIGHT HAND IV INTACT AND PATENT, RECEIVING IVF ORDERED, INFUSING WELL. PT TO BE NPO AFTER MIDNIGHT PREPARATION FOR SURGERY TOMORROW. PT 'S SKIN REMAINS TO BE INTACT, INDEPENDENT IN BED MOBILITY, PLACED CALL LIGHT WITHIN REACH, BED IN LOW POSITION AND LOCKED IN PLACE.
[2018-12-17] MEDS: INSULIN GLARGINE [LANTus] (100 UNITS/ML) SYG SC SCH (20:28)
[2018-12-17] MEDS: ATORVASTATIN 80 MG TAB PO SCH (21:15)
[2018-12-18] VITALS (32 sets, daily range): BP systolic 100–201; BP diastolic 53–110; PULSE 60–123; RESP 10–26
[2018-12-18] MEDS: SOD CHLORIDE 0.9% 1,000 ML IV SCH ×2 (01:56→14:59)
[2018-12-18] MEDS: CEFTRIAXONE 1 GM/50 ML (PMX) 50 ML IVPB SCH (01:56)
[2018-12-18] MEDS: ACCU-CHEK XX SCH (02:00)
--- NOTE | 2018-12-18 06:35 | NUR ---
EOSS PT IN STABLE CONDITION, VS STABLE, NPO FOR SURGERY THAT SCHEDULED AT 0930 AM. MEDICATED FOR PAIN WITH DILAUDID IV. AMBULATORY, BRP. BS CONTROLLED. FALLS PRECAUTIONS OBSERVED. WILL ENDORSE TO NEXT SHIFT RN.
[2018-12-18] MEDS: INSULIN ASPART [NOVOLOG] 3 ML PEN SC SCH ×4 (07:50→20:54)
[2018-12-18] MEDS: FAMOTIDINE 20 MG INJ IV SCH (08:28)
--- NOTE | 2018-12-18 08:58 | PN ---
Date/Time of Note Date/Time of Note DATE: 12/18/18 TIME: 08:58 Assessment/Plan Lines/Catheters [facility] ([facility] Peripheral IV Assessment/Plan Chief Complaint/Hosp Course 1. Symptomatic cholelithiasis:HIDA negative -Lap melecio today -N.p.o. -IV fluids 2. Abdominal pain: 12/08? #1 versus other: -As above -Pain management 3.Thrombocytosis: -Trend -Further workup if persistent 4. Normocytic normochromic anemia: -Monitor and transfuse as needed 5. Diabetes -diet/med optimization 7. Hyperthyroidism: -Med management 8. Hypoalbuminemia: -Eventual nutrition optimization 9. Pyuria -Frequent bladder emptying Thank you Subjective 24 Hr Interval Summary Continues to have abdominal pain. OR today. No fevers, chills, sob, congested cough, cp, palpitations, dinero, dizziness, nausea, vomiting, diarrhea, dysuria. Exam/Review of Systems Vital Signs Vitals Vital Signs Date Temp Pulse Resp B/P (MAP) Pulse Ox O2 O2 Flow FiO2 Time Delivery Rate 12/18/18 98.4 75 16 123/57 96 Room Air 00:34 (79) Intake and Output 12/17/18 12/17/18 12/18/18 1515:00 23:00 07:00 IntakeIntake Total 1300 ml 1450 ml BalanceBalance 1300 ml 1450 ml Exam Free Text/Dictation Constitutional: alert, oriented Psych: nl mood/affect, anxiety (Minimal) Head: normocephalic, atraumatic Eyes: nl conjunctiva, EOMI, nl lids, nl sclera ENMT: nl external ears & nose, nl lips & teeth, mucosa pink and moist Neck: supple, non-tender Respiratory: normal air movement; No congested cough Cardiovascular: regular rate and rhythm, nl pulses Gastrointestinal: soft, tender (Generalized); No distended, No firm Musculoskeletal: nl extremities to inspection, nl gait and stance Extremities: normal pulses; No edema Neurological: nl mental status, nl speech, nl strength Skin: nl turgor; No rash or lesions Lymph: nl lymph nodes Results Result Diagram: 12/18/1843112/18/18431 FARTUN BARRIGA MD Dec 18, 2018 08:58
--- NOTE | 2018-12-18 08:59 | OPR ---
Date/Time of Note Date/Time of Note DATE: 12/18/18 TIME: 08:58 Operative Report Free Text/Dictation Preoperative Diagnosis: Symptomatic cholelithiasis Postoperative Diagnosis: Symptomatic cholelithiasis Abnormal liver color Operation(s) Performed: 1. 3 port laparoscopic cholecystectomy 2. Laparoscopic liver wedge resection biopsy 3. Indigocarmine green fluorescence cholangiography 4. Local anesthetic [place], [id number] 5. Laparoscopic guided bilateral transversus abdominis plane block Surgeon: Fartun Barriga MD Mountain Guide: Toyin Doyle NP Anesthesia: general, local, & regional Anesthesiologist: MD Rafaela Estimated Blood Loss: <5 ml's Specimens: Gallbladder Liver Tubes/Drains: None Complications: None Pt Condition Post Procedure: stable Disposition: PACU Indications: 58-year-old female with gallstones and abdominal pain here for cholecystectomy. Risks include but are not limited to bleeding, infection, abscess, seroma, damage to intestines, damage to the liver, damage to biliary tree, hernia formation, chronic pain, biloma, need for reoperations or further surgeries, ID, stroke, PE, DVT, pneumonia, organ failures, or even . Procedure Description: Patient was brought and placed supine on the operating table SCDs were placed, preoperative antibiotics were administered, all pressure points were well- padded, and after induction of anesthesia patient was prepped and draped in usual sterile fashion and timeout was performed. Incision was made in the supraumbilical region, Veress was safely inserted, and after a negative SIP test, abdomen was insufflated to 15mmHg. Veress was removed and 5mm port was safely inserted. Laparoscopy was performed with a 5 mm 30 scope. No injuries were identified. The gallbladder is without evidence of inflammation and infection. The liver however looks abnormal color. 12 mm port is placed in subxiphoid under direct visualization followed by another 5 mm port in the right upper quadrant. All port sites were injected with quarter percent Marcaine with epi and 1% lidocaine prior to any incisions. Bilateral transversus abdominis plane block was performed under laparoscopic visualization to aid with pain control intra-and postoperatively. Patient was placed in reverse Trendelenburg and right side up on gallbladder was retracted superolaterally. Using electrocautery and blunt dissection I was able to identify the cystic artery and cystic duct. The duct was small and tapered into the gallbladder. Full critical angle view was identified. Gentle dissection identified cystic artery and duct. The cystic artery and duct were clipped twice proximally once distally then transected. Gallbladder was placed in an Endo Catch bag and removed through the subxiphoid port site. There was complete hemostasis. Due to the abnormality of LFTs decision was made to perform liver wedge resection which was done with electrocautery and scissor with complete hemostasis right after. The specimen was sent to pathology for further evaluation. 12 mm made port site fascia was closed with Endo Close of an 0 Vicryl in a [id number] manner. Ports and CO2 were removed under direct visualization. Next complete hemostasis. Wounds were thoroughly irrigated skin was closed with 4-0 Monocryl in subcuticular fashion. Dermabond was applied. Patient was extubated and transferred to recovery room in stable condition and all counts were correct and the end of the operation 2. FARTUN BARRIGA MD Dec 18, 2018 08:59
[2018-12-18] MEDS ORDERED: BUPIVACAINE 0.5%/EPI (SDV) 30 ML INJ ONE (09:00)
[2018-12-18] MEDS ORDERED: LIDOCAINE 1% (MPF) 30 ML INJ ONE (09:00)
[2018-12-18] MEDS ORDERED: LIDOCAINE 2% (SDV) 5 ML INJ ONE (09:30)
[2018-12-18] MEDS ORDERED: PROPOFOL 20 ML ONE (09:30)
[2018-12-18] MEDS ORDERED: DEXAMETHASONE 4 MG/ML 5 ML INJ ONE (09:30)
[2018-12-18] MEDS ORDERED: ROCURONIUM 50 MG INJ ONE (09:30)
[2018-12-18] MEDS ORDERED: ONDANSETRON 4 MG INJ ONE (09:31)
[2018-12-18] MEDS ORDERED: NEOSTIGMINE 3 MG/3 ML SYRINGE ONE (09:58)
[2018-12-18] MEDS ORDERED: GLYCOPYRROLATE 0.4 MG INJ ONE (09:58)
--- NOTE | 2018-12-18 10:13 | NUR ---
RECEIVED PATIENT FROM OR POST LAPAROSCOPIC CHOLECYSTECTOMY UNDER GENERAL ANESTHESIA . ON O2 6/ VIA FACE MASK .NOTED NO CHEST RISING EVEN O2 SAT 100% .PATIENT UNRESPONSIVE. DR. AGUDELO ANESTHESIOLOGIST ALERTED .BP 213/111 HR .126 .. PATIENT REVERESED BY DR BEVERLY .LABETALOL 5MG IV GIVEN.
--- NOTE | 2018-12-18 10:15 | NUR ---
PATIENT BEGINNING TO HAVE GOOD CHEST RISING .RESPIRATION ESTABLISHED .SAT 100% .bp 199/97
--- NOTE | 2018-12-18 10:20 | NUR ---
PATIENT MORE AWAKE .NOW SR AND BP STABILIZE.
[2018-12-18] MEDS ORDERED: METOPROLOL 5 MG INJ ONE (10:22)
--- NOTE | 2018-12-18 10:26 | PAC ---
Date/Time of Note Date/Time of Note DATE: 12/18/18 TIME: 10:23 Post-Anesthesia Notes Post-Anesthesia Note Last documented vital signs Vital Signs Date Temp Pulse Resp B/P (MAP) Pulse Ox O2 O2 Flow FiO2 Time Delivery Rate 12/18/18 98.1 10:17 12/18/18 98.1 75 16 123/57 96 Room Air 10:15 (79) Activity: WNL Respiratory function: WNL Cardiovascular function: WNL Mental status: Baseline Pain reasonably controlled: Yes Hydration appropriate: Yes Nausea/Vomiting absent: Yes MARYANA AGUDELO Dec 18, 2018 10:26
[2018-12-18] MEDS ORDERED: SUGAMMADEX SODIUM 200 MG/2 ML VIAL IV ONE (10:29)
[2018-12-18] MEDS ORDERED: ONDANSETRON 4 MG INJ IV PRN (10:30)
[2018-12-18] MEDS ORDERED: MIDAZOLAM 1 MG/ML 2 ML INJ IV PRN (10:30)
[2018-12-18] MEDS ORDERED: METOCLOPRAMIDE 10 MG INJ IV PRN (10:30)
[2018-12-18] MEDS ORDERED: HYDROmorphONE 1 MG/5 ML IV SYRINGE IV PRN ×3 (10:30)
[2018-12-18] MEDS ORDERED: EPHEDrine SULFATE 50 MG/5 ML SYG IV PRN (10:30)
[2018-12-18] MEDS ORDERED: LABETALOL HCL 20MG INJ IV PRN (10:30)
[2018-12-18] MEDS ORDERED: ALBUTEROL 0.083% (NEB) 2.5 MG/3 ML AMP HHN PRN (10:30)
[2018-12-18] MEDS ORDERED: FENTAnyl 50 MCG/ML VIAL IV PRN ×3 (10:30)
[2018-12-18] MEDS ORDERED: hydrALAzine 20 MG INJ IV PRN (10:30)
[2018-12-18] MEDS ORDERED: MEPERIDINE 25 MG INJ IV PRN (10:30)
--- NOTE | 2018-12-18 11:00 | NUR ---
REMAIN STABLE SR /BP STABLE ON RA SATURATING 96%.
--- NOTE | 2018-12-18 11:07 | NUR ---
C/O SEVERE PAIN 07/16 .DILAUDID 0.6MG IV GIVEN .ZOFRAN 4MG IV GIVEN FOR NAUSEA.PROPHYLAXIS.
--- NOTE | 2018-12-18 11:13 | NUR ---
BLLOD SUGAR PER ACCU .CHECK 132. ICE PACK TO ABDOMEN APPLIED .ABDOMEN WITH 4 SMALL LAPAROSCOPIC INCISIONS COVERED WITH DERMA BAND AND STERI STRIPS
--- NOTE | 2018-12-18 11:44 | NUR ---
TRANSFERRED BACK TO [facility] IN STABLE CONDITION .DENIES PAIN V/S STABLE INCISIONS DRY AND INTACT NO SIGN OF BLEEDING .REPORT GIVEN TO ASAF DIANE.
--- NOTE | 2018-12-18 11:56 | NUR ---
RECEIVED REPORT FROM DISHA IN RECOVERY ROOM, PATIENT RECEIVED BACK IN ROOM, VITAL SIGNS STABLE. 3 LAP SITES WITH DERMABOND, OPEN TO AIR, DRY AND INTACT, NOTED WITH NO DISCHARGE AND NO BLEEDING. SCDs ON BLE, PLACED BED IN LOW POSITION, CALL LIGHT PLACED WITHIN EASY REACH. PROVIDED WITH CLEAR LIQUIDS, TOLERATED WELL. WILL CONTINUE TO MONITOR.
--- NOTE | 2018-12-18 12:13 | PN ---
Date/Time of Note Date/Time of Note DATE: 12/18/18 TIME: 12:12 Assessment/Plan VTE Prophylaxis Risk score (from Nsg)>0 risk: 3 SCD applied (from Nsg): Yes SCD contraindicated: low risk/ambulating Pharmacological prophylaxis: LMWH Lines/Catheters IV Catheter Type (from Nrsg): Peripheral IV Assessment/Plan Hospital Course Assessment and plan 1. Symptomatic cholelithiasis, sp lap chol; stable treat pain 2. Type 2 diabetes/metabolic syndrome 3. Anemia stable 4. Cystitis? 3-day therapy 5. Subclinical hyperparathyroidism 6. Accelerated hypertension, treat pain S: 12/17 no events. No fever vomiting 12/18 events noted O: Vss PE No pallor icterus Regular Clear Bs dimin mod tender; nd, no RRG No edema Result Diagram: 12/18/182 12/18/18 0432 Results 24hrs Laboratory Tests Test 12/17/18 12:38 12/17/18 17:45 12/17/18 20:24 12/17/18 21:14 Bedside Glucose 167 95 102 101 Test 12/18/18 04:30 12/18/18 04:32 12/18/18 08:27 12/18/18 10:23 Serum HCG, NEGATIVE Qualitative White Blood Count 6.9 Red Blood Count 3.71 L Hemoglobin 11.1 L Hematocrit 33.1 L Mean Corpuscular 89.2 Volume Mean Corpuscular 29.9 Hemoglobin Mean Corpuscular 33.5 Hemoglobin Concent Red Cell 12.4 Distribution Width Platelet Count 407 Mean Platelet Volume 10.4 Immature 0.300 Granulocytes % Neutrophils % 57.9 Lymphocytes % 30.7 Monocytes % 9.2 Eosinophils % 1.3 Basophils % 0.6 Nucleated Red Blood 0.0 Cells % Immature 0.020 Granulocytes # Neutrophils # 4.0 Lymphocytes # 2.1 Monocytes # 0.6 Eosinophils # 0.1 Basophils # 0.0 Nucleated Red Blood 0.0 Cells # Prothrombin Time 13.8 Prothrombin Time 1.1 Ratio INR International 1.05 Normalized Ratio Sodium Level 142 Potassium Level 3.5 Chloride Level 107 Carbon Dioxide Level 25 Anion Gap 10 # Blood Urea Nitrogen 3 L Creatinine 0.43 L Est Glomerular > 60 Filtrat Rate mL/min Glucose Level 101 Calcium Level 9.1 Phosphorus Level 3.7 Magnesium Level 2.2 Total Bilirubin 0.2 Direct Bilirubin 0.00 Indirect Bilirubin 0.2 Aspartate Amino 34 Transf (AST/SGOT) Alanine 28 Aminotransferase (AL T/SGPT) Alkaline Phosphatase 103 Total Protein 6.5 Albumin 3.2 L Globulin 3.30 H Albumin/Globulin 0.96 Ratio Bedside Glucose 97 132 Exam/Review of Systems Exam Vitals Vital Signs Date Temp Pulse Resp B/P (MAP) Pulse Ox O2 O2 Flow FiO2 Time Delivery Rate 12/18/18 97.5 69 18 134/61 96 Room Air 12:01 (85) 12/18/18 6.0 10:15 Intake and Output 12/17/18 12/17/18 12/18/18 1515:00 23:00 07:00 IntakeIntake Total 1300 ml 1450 ml BalanceBalance 1300 ml 1450 ml Results Results 24hrs Laboratory Tests Test 12/17/18 12:38 12/17/18 17:45 12/17/18 20:24 12/17/18 21:14 Bedside Glucose 167 95 102 101 Test 12/18/18 04:30 12/18/18 04:32 12/18/18 08:27 12/18/18 10:23 Serum HCG, NEGATIVE Qualitative White Blood Count 6.9 Red Blood Count 3.71 L Hemoglobin 11.1 L Hematocrit 33.1 L Mean Corpuscular 89.2 Volume Mean Corpuscular 29.9 Hemoglobin Mean Corpuscular 33.5 Hemoglobin Concent Red Cell 12.4 Distribution Width Platelet Count 407 Mean Platelet Volume 10.4 Immature 0.300 Granulocytes % Neutrophils % 57.9 Lymphocytes % 30.7 Monocytes % 9.2 Eosinophils % 1.3 Basophils % 0.6 Nucleated Red Blood 0.0 Cells % Immature 0.020 Granulocytes # Neutrophils # 4.0 Lymphocytes # 2.1 Monocytes # 0.6 Eosinophils # 0.1 Basophils # 0.0 Nucleated Red Blood 0.0 Cells # Prothrombin Time 13.8 Prothrombin Time 1.1 Ratio INR International 1.05 Normalized Ratio Sodium Level 142 Potassium Level 3.5 Chloride Level 107 Carbon Dioxide Level 25 Anion Gap 10 # Blood Urea Nitrogen 3 L Creatinine 0.43 L Est Glomerular > 60 Filtrat Rate mL/min Glucose Level 101 Calcium Level 9.1 Phosphorus Level 3.7 Magnesium Level 2.2 Total Bilirubin 0.2 Direct Bilirubin 0.00 Indirect Bilirubin 0.2 Aspartate Amino 34 Transf (AST/SGOT) Alanine 28 Aminotransferase (AL T/SGPT) Alkaline Phosphatase 103 Total Protein 6.5 Albumin 3.2 L Globulin 3.30 H Albumin/Globulin 0.96 Ratio Bedside Glucose 97 132 Medications Medication Current Medications Sodium Chloride 1,000 ml @ 100 mls/hr Q10H IV Last administered on 12/18/18at 01:56; Admin Dose 100 MLS/HR; Start 12/14/18 at 21:30 IV Flush (NS 3 ml) 3 ml PER PROTOCOL IV ; Start 12/14/18 at 21:30 Ondansetron HCl (Zofran Inj) 4 mg Q6H PRN IV NAUSEA/VOMITING Last administered on 12/17/18at 21:15; Admin Dose 4 MG; Start 12/14/18 at 21:30 Hydromorphone HCl (Dilaudid) 0.5 mg Q4H PRN IV .SEVERE PAIN 7-10 Last administered on 12/17/18at 20:26; Admin Dose 0.5 MG; Start 12/14/18 at 21:30 Docusate Sodium (Colace) 100 mg Q12H PRN PO .CONSTIPATION; Start 12/14/18 at 21:30 Bisacodyl (Dulcolax) 5 mg DAILY PRN PO .CONSTIPATION; Start 12/14/18 at 21:30 Atorvastatin Calcium (Lipitor) 80 mg QHS PO Last administered on 12/17/18at 21:15; Admin Dose 80 MG; Start 12/14/18 at 22:00 Ceftriaxone Sodium 50 ml @ 100 mls/hr Q24H IVPB Last administered on 12/18/18at 01:56; Admin Dose 100 MLS/HR; Start 12/15/18 at 02:30 Miscellaneous Information 1 ea NOTE XX ; Start 12/15/18 at 10:30 Glucose (Glutose) 15 gm Q15M PRN PO DECREASED GLUCOSE; Start 12/15/18 at 10:30 Glucose (Glutose) 22.5 gm Q15M PRN PO DECREASED GLUCOSE; Start 12/15/18 at 10:30 Dextrose (D50w Syringe) 25 ml Q15M PRN IV DECREASED GLUCOSE; Start 12/15/18 at 10:30 Dextrose (D50w Syringe) 50 ml Q15M PRN IV DECREASED GLUCOSE; Start 12/15/18 at 10:30 Glucagon (Glucagen) 1 mg Q15M PRN IM DECREASED GLUCOSE; Start 12/15/18 at 10:30 Glucose (Glutose) 15 gm Q15M PRN BUCCAL DECREASED GLUCOSE; Start 12/15/18 at 10:30 Diagnostic Test (Pha) (Accu-Chek) 1 ea 02 XX Last administered on 12/16/18at 02:33; Admin Dose 1 EA; Start 12/16/18 at 02:00 Insulin Aspart (Novolog Insulin Pen) NOVOLOG *MILD* ALGORITHM WITH MEALS BEDTIME SC Last administered on 12/17/18at 12:40; Admin Dose 1 UNIT; Start 12/15/18 at 17:55 Methimazole (Tapazole) 10 mg DAILY PO Last administered on 12/17/18at 09:11; Admin Dose 10 MG; Start 12/16/18 at 13:30 Insulin Glargine (Lantus) 4 units DAILY@2000 SC Last administered on 12/17/18at 20:28; Admin Dose 4 UNITS; Start 12/17/18 at 20:00 Famotidine (Pepcid Iv) 20 mg DAILY IV Last administered on 12/18/18at 08:28; Admin Dose 20 MG; Start 12/18/18 at 09:00 Hydromorphone HCl (Dilaudid) 0.2 mg PACU PRN IV MILD PAIN 1-3; Start 12/18/18 at 10:30; Stop 12/18/18 at 16:00 Hydromorphone HCl (Dilaudid) 0.4 mg PACU PRN IV MOD PAIN 4-6; Start 12/18/18 at 10:30; Stop 12/18/18 at 16:00 Hydromorphone HCl (Dilaudid) 0.6 mg PACU PRN IV SEVERE PAIN 7-10 Last administered on 12/18/18at 11:04; Admin Dose 0.6 MG; Start 12/18/18 at 10:30; Stop 12/18/18 at 16:00 Fentanyl (Sublimaze) 25 mcg PACU ORDER PRN IV MILD PAIN 1-3; Start 12/18/18 at 10:30; Stop 12/18/18 at 16:00 Fentanyl (Sublimaze) 50 mcg PACU ORDER PRN IV MOD PAIN 4-6; Start 12/18/18 at 10:30; Stop 12/18/18 at 16:00 Fentanyl (Sublimaze) 75 mcg PACU ORDER PRN IV SEVERE PAIN 7-10; Start 12/18/18 at 10:30; Stop 12/18/18 at 16:00 Ondansetron HCl (Zofran Inj) 4 mg PACU ORDER PRN IV NAUSEA/VOMITING Last administered on 12/18/18at 11:04; Admin Dose 4 MG; Start 12/18/18 at 10:30; Stop 12/18/18 at 16:00 Metoclopramide HCl (Reglan) 10 mg PACU ORDER PRN IV NAUSEA/VOMITING; Start 12/18/18 at 10:30; Stop 12/18/18 at 16:00 Labetalol HCl (Labetalol) 5 mg PACU ORDER PRN IV HIGH BLOOD PRESSURE Last administered on 12/18/18at 11:19; Admin Dose 5 MG; Start 12/18/18 at 10:30; Stop 12/18/18 at 16:00 Hydralazine HCl (Apresoline) 5 mg PACU ORDER PRN IV HIGH BLOOD PRESSURE; Start 12/18/18 at 10:30; Stop 12/18/18 at 16:00 Ephedrine Sulfate 5 mg PACU ORDER PRN IV BLOOD PRESSURE SUPPORT; Start 12/18/18 at 10:30; Stop 12/18/18 at 16:00 Albuterol (Proventil 0.083% (Neb)) 2.5 mg PACU ORDER PRN HHN .WHEEZING; Start 12/18/18 at 10:30; Stop 12/18/18 at 16:00 Meperidine HCl (Demerol) 25 mg PACU ORDER PRN IV .RIGORS; Start 12/18/18 at 10:30; Stop 12/18/18 at 16:00 Midazolam HCl (Versed) 0.5 mg PACU ORDER PRN IV .ANXIETY; Start 12/18/18 at 10:30; Stop 12/18/18 at 16:00 NIXON LA MD Dec 18, 2018 12:13
[2018-12-18] MEDS: METHIMAZOLE 5 MG TAB PO SCH (12:57)
[2018-12-18] MEDS ORDERED: HYDROCODONE/APAP (5/325) TAB ONE (17:41)
[2018-12-18] MEDS ORDERED: HYDROCODONE/APAP (10/325) TAB ONE (17:45)
[2018-12-18] MEDS: HYDROCODONE/APAP (10/325) TAB PO PRN ×2 (17:54→20:57)
--- NOTE | 2018-12-18 18:44 | NUR ---
END OF SHIFT NOTES PATIENT TOLERATED DINNER WELL, NO C/O NAUSEA AT THIS TIME, VERBALIZED C/O PAIN AND MANAGED WITH NORCO 10/325 MG 1 TAB, WITH HELP AND PER PT PAIN LEVEL WENT DOWN TO 0/10. PATIENT CONTINUES TO AMBULATE TO BATHROOM WITH STANDBY ASSIST. PT CONTINUES TO RECEIVE IVF ORDERED VIA IVP LINE ON RIGHT HAND, INTACT AND PATENT. KEPT PT'S BED IN LOW POSITION, CALL LIGHT PLACED WITHIN EASY REACH. ALL NEEDS ATTENDED TO, KEPT SAFE AND DRY, CLEAN AND COMFORTABLE.
[2018-12-18] MEDS: ATORVASTATIN 80 MG TAB PO SCH (20:51)
[2018-12-18] MEDS: INSULIN GLARGINE [LANTus] (100 UNITS/ML) SYG SC SCH (20:55)
[2018-12-18] MEDS: BISACODYL (EC) 5 MG TAB PO PRN (21:00)
[2018-12-18] MEDS: DOCUSATE SODIUM 100 MG CAP PO PRN (21:00)
[2018-12-19 00:34] VITALS: BP 119/64; PULSE 80; RESP 18
[2018-12-19] MEDS: SOD CHLORIDE 0.9% 1,000 ML IV SCH ×2 (01:04→10:14)
[2018-12-19] MEDS: HYDROCODONE/APAP (10/325) TAB PO PRN ×4 (01:04→21:57)
[2018-12-19] MEDS: ACCU-CHEK XX SCH (02:41)
[2018-12-19] MEDS: CEFTRIAXONE 1 GM/50 ML (PMX) 50 ML IVPB SCH (02:46)
[2018-12-19] MEDS ORDERED: HYDROCODONE/APAP (10/325) TAB PO PRN (06:00)
--- NOTE | 2018-12-19 06:44 | NUR ---
End of Shift Summary: S/P LAPAROSCOPIC CHOLECYSTECTOMY on 12/18 Pt received norco for pain management. SCD's in place. Last BM on 12/14. Pt received colace and dulcolax. Blood sugar 226 and 203 during shift. Pt received 2 units of novolog and lantus 4 units. IV site is intact and asystematic. IV fluids and IVPB infusing as ordered. Encouraged incentive spirometer use Q1hr x10 while awake. Teaching provided and patient understands instructions. Safety precautions maintained throughout the shift. Bed in lowest position and bed alarm activated. Call light within reach. Hourly rounding rendered. All needs met.
[2018-12-19] MEDS: METHIMAZOLE 5 MG TAB PO SCH (08:28)
[2018-12-19] MEDS: FAMOTIDINE 20 MG INJ IV SCH (08:28)
[2018-12-19] MEDS: INSULIN ASPART [NOVOLOG] 3 ML PEN SC SCH ×4 (08:29→20:27)
[2018-12-19 08:46] VITALS: BP 148/71; PULSE 81; RESP 18
[2018-12-19] MEDS: ONDANSETRON 4 MG INJ IV PRN (12:03)
[2018-12-19 14:18] VITALS: BP 139/99; PULSE 75; RESP 18
--- NOTE | 2018-12-19 17:46 | PN ---
Date/Time of Note Date/Time of Note DATE: 12/19/18 TIME: 17:45 Assessment/Plan VTE Prophylaxis Risk score (from Nsg)>0 risk: 3 SCD applied (from Nsg): Yes SCD contraindicated: low risk/ambulating Pharmacological prophylaxis: LMWH Lines/Catheters IV Catheter Type (from Nrsg): Peripheral IV Assessment/Plan Hospital Course Assessment and plan 1. Symptomatic cholelithiasis, sp lap chol; stable treat pain 2. Type 2 diabetes/metabolic syndrome 3. Anemia stable 4. Cystitis? 3-day therapy 5. Subclinical hyperparathyroidism 6. Accelerated hypertension, treat pain 7. Neck left arm pain probably musculoskeletal rule out ACS S: 12/17 no events. No fever vomiting 12/18 events noted 12/19: Nonexertional neck left arm pain unable to characterize. No previous similar discomfort in the past. No nausea vomiting diaphoresis. O: Vss PE No pallor icterus Regular Clear Bs dimin mod tender; nd, no RRG No edema; rom shoulder intact Result Diagram: 12/19/18 0424 12/19/18 0424 Results 24hrs Laboratory Tests Test 12/18/18 20:50 12/19/18 02:23 12/19/18 04:24 12/19/18 08:26 Bedside Glucose 226 H 203 148 White Blood Count 8.2 Red Blood Count 3.72 L Hemoglobin 11.0 L Hematocrit 33.0 L Mean Corpuscular 88.7 Volume Mean Corpuscular 29.6 Hemoglobin Mean Corpuscular 33.3 Hemoglobin Concent Red Cell 12.6 Distribution Width Platelet Count 417 H Mean Platelet Volume 10.7 H Immature 0.400 Granulocytes % Neutrophils % 66.2 Lymphocytes % 24.7 Monocytes % 8.3 Eosinophils % 0.0 Basophils % 0.4 Nucleated Red Blood 0.0 Cells % Immature 0.030 Granulocytes # Neutrophils # 5.4 Lymphocytes # 2.0 Monocytes # 0.7 Eosinophils # 0.0 Basophils # 0.0 Nucleated Red Blood 0.0 Cells # Sodium Level 140 Potassium Level 3.7 Chloride Level 105 Carbon Dioxide Level 23 Anion Gap 12 Blood Urea Nitrogen 7 Creatinine 0.43 L Est Glomerular > 60 Filtrat Rate mL/min Glucose Level 183 Calcium Level 9.1 Total Bilirubin 0.1 L Direct Bilirubin 0.00 Indirect Bilirubin 0.1 Aspartate Amino 42 Transf (AST/SGOT) Alanine 46 Aminotransferase (AL T/SGPT) Alkaline Phosphatase 93 Total Protein 6.6 Albumin 3.2 L Globulin 3.40 H Albumin/Globulin 0.94 Ratio Test 12/19/18 12:32 12/19/18 15:50 Bedside Glucose 241 H Troponin I 0.021 Exam/Review of Systems Exam Vitals Vital Signs Date Temp Pulse Resp B/P (MAP) Pulse Ox O2 O2 Flow FiO2 Time Delivery Rate 12/19/18 97.7 75 18 139/99 98 14:18 (112) 12/18/18 Room Air 15:31 12/18/18 6.0 10:15 Intake and Output 12/18/18 12/18/18 12/19/18 1515:00 23:00 07:00 IntakeIntake Total 2040 ml 440 ml 1250 ml OutputOutput Total 10 ml BalanceBalance 2030 ml 440 ml 1250 ml Results Results 24hrs Laboratory Tests Test 12/18/18 20:50 12/19/18 02:23 12/19/18 04:24 12/19/18 08:26 Bedside Glucose 226 H 203 148 White Blood Count 8.2 Red Blood Count 3.72 L Hemoglobin 11.0 L Hematocrit 33.0 L Mean Corpuscular 88.7 Volume Mean Corpuscular 29.6 Hemoglobin Mean Corpuscular 33.3 Hemoglobin Concent Red Cell 12.6 Distribution Width Platelet Count 417 H Mean Platelet Volume 10.7 H Immature 0.400 Granulocytes % Neutrophils % 66.2 Lymphocytes % 24.7 Monocytes % 8.3 Eosinophils % 0.0 Basophils % 0.4 Nucleated Red Blood 0.0 Cells % Immature 0.030 Granulocytes # Neutrophils # 5.4 Lymphocytes # 2.0 Monocytes # 0.7 Eosinophils # 0.0 Basophils # 0.0 Nucleated Red Blood 0.0 Cells # Sodium Level 140 Potassium Level 3.7 Chloride Level 105 Carbon Dioxide Level 23 Anion Gap 12 Blood Urea Nitrogen 7 Creatinine 0.43 L Est Glomerular > 60 Filtrat Rate mL/min Glucose Level 183 Calcium Level 9.1 Total Bilirubin 0.1 L Direct Bilirubin 0.00 Indirect Bilirubin 0.1 Aspartate Amino 42 Transf (AST/SGOT) Alanine 46 Aminotransferase (AL T/SGPT) Alkaline Phosphatase 93 Total Protein 6.6 Albumin 3.2 L Globulin 3.40 H Albumin/Globulin 0.94 Ratio Test 12/19/18 12:32 12/19/18 15:50 Bedside Glucose 241 H Troponin I 0.021 Medications Medication Current Medications Sodium Chloride 1,000 ml @ 100 mls/hr Q10H IV Last administered on 12/19/18at 10:14; Admin Dose 100 MLS/HR; Start 12/14/18 at 21:30 IV Flush (NS 3 ml) 3 ml PER PROTOCOL IV ; Start 12/14/18 at 21:30 Hydromorphone HCl (Dilaudid) 0.5 mg Q4H PRN IV .SEVERE PAIN 7-10 Last administered on 12/17/18at 20:26; Admin Dose 0.5 MG; Start 12/14/18 at 21:30 Docusate Sodium (Colace) 100 mg Q12H PRN PO .CONSTIPATION Last administered on 12/18/18at 21:00; Admin Dose 100 MG; Start 12/14/18 at 21:30 Bisacodyl (Dulcolax) 5 mg DAILY PRN PO .CONSTIPATION Last administered on 12/18/18at 21:00; Admin Dose 5 MG; Start 12/14/18 at 21:30 Atorvastatin Calcium (Lipitor) 80 mg QHS PO Last administered on 12/18/18at 20:51; Admin Dose 80 MG; Start 12/14/18 at 22:00 Ceftriaxone Sodium 50 ml @ 100 mls/hr Q24H IVPB Last administered on 12/19/18at 02:46; Admin Dose 100 MLS/HR; Start 12/15/18 at 02:30 Miscellaneous Information 1 ea NOTE XX ; Start 12/15/18 at 10:30 Glucose (Glutose) 15 gm Q15M PRN PO DECREASED GLUCOSE; Start 12/15/18 at 10:30 Glucose (Glutose) 22.5 gm Q15M PRN PO DECREASED GLUCOSE; Start 12/15/18 at 10:30 Dextrose (D50w Syringe) 25 ml Q15M PRN IV DECREASED GLUCOSE; Start 12/15/18 at 10:30 Dextrose (D50w Syringe) 50 ml Q15M PRN IV DECREASED GLUCOSE; Start 12/15/18 at 10:30 Glucagon (Glucagen) 1 mg Q15M PRN IM DECREASED GLUCOSE; Start 12/15/18 at 10:30 Glucose (Glutose) 15 gm Q15M PRN BUCCAL DECREASED GLUCOSE; Start 12/15/18 at 10:30 Diagnostic Test (Pha) (Accu-Chek) 1 ea 02 XX Last administered on 12/19/18 02:41; Admin Dose 1 EA; Start 12/16/18 at 02:00 Insulin Aspart (Novolog Insulin Pen) NOVOLOG *MILD* ALGORITHM WITH MEALS BEDTIME SC Last administered on 12/19/18 12:36; Admin Dose 3 UNIT; Start 12/15/18 at 17:55 Methimazole (Tapazole) 10 mg DAILY PO Last administered on 12/19/18 08:28; Admin Dose 10 MG; Start 12/16/18 at 13:30 Insulin Glargine (Lantus) 4 units DAILY@2000 SC Last administered on 12/18/18 20:55; Admin Dose 4 UNITS; Start 12/17/18 at 20:00 Famotidine (Pepcid Iv) 20 mg DAILY IV Last administered on 12/19/18 08:28; Admin Dose 20 MG; Start 12/18/18 at 09:00 Ondansetron HCl (Zofran Inj) 4 mg Q4H PRN IV NAUSEA/VOMITING Last administered on 12/19/18 12:03; Admin Dose 4 MG; Start 12/18/18 at 12:30 Acetaminophen/ Hydrocodone Bitart ([place] (10/325)) 1 tab Q4H PRN PO MODERATE PAIN LEVEL 4-6 Last administered on 12/19/18 14:45; Admin Dose 1 TAB; Start 12/18/18 at 18:00 NIXON LA MD Dec 19, 2018 17:46
[2018-12-19] MEDS: metFORMIN 500 MG TAB PO SCH (18:08)
--- NOTE | 2018-12-19 19:50 | NUR ---
END OF SHIFT NOTE: Pt with complaints of neck pain throughout shift, PRN [place] given. At 1400, pt complained of neck pain radiating down left arm with tingling in fingers, Delfina to the bedside, Dr. Brock notified. EKG, chest xray, and troponins ordered, will endorse to night RN to monitor. AccuCheck done ACHS, insulin given per policy. VSS, call purdy within reach, hourly rounding maintained.
[2018-12-19] MEDS: ATORVASTATIN 80 MG TAB PO SCH (20:24)
[2018-12-19] MEDS: INSULIN GLARGINE [LANTus] (100 UNITS/ML) SYG SC SCH (20:28)
[2018-12-19 20:30] VITALS: BP 125/63; PULSE 72; RESP 18
[2018-12-19] MEDS: BISACODYL (EC) 5 MG TAB PO PRN (20:31)
[2018-12-19] MEDS: DOCUSATE SODIUM 100 MG CAP PO PRN (20:31)
--- NOTE | 2018-12-19 21:25 | PN ---
Date/Time of Note Date/Time of Note DATE: 12/19/18 TIME: 21:21 Assessment/Plan Lines/Catheters IV Catheter Type (from Nrs): Peripheral IV Assessment/Plan Chief Complaint/Hosp Course 1. Symptomatic cholelithiasis: Status post laparoscopic cholecystectomy 12/18/18-IS -ambulate -ice pack to abdominal wall -diet as tolerated -DC planning okay from surgical standpoint 2. Abdominal pain: /? #1 versus other: -As above -Pain management 3.Thrombocytosis: -Trend -Further workup if persistent 4. Normocytic normochromic anemia: -Monitor and transfuse as needed 5. Diabetes -diet/med optimization 7. Hyperthyroidism: -Med management 8. Hypoalbuminemia: -Eventual nutrition optimization 9. Pyuria -Frequent bladder emptying Thank you. Patient seen and examined in collaboration with Dr. Josh Hagen. Subjective 24 Hr Interval Summary Status post laparoscopic cholecystectomy yesterday. Minimal abdominal discomfort. No abdominal pain associated with eating. No fevers, chills, sob, congested cough, cp, palpitations, dinero, dizziness, nausea, vomiting, diarrhea, dysuria. Exam/Review of Systems Vital Signs Vitals Vital Signs Date Temp Pulse Resp B/P (MAP) Pulse Ox O2 O2 Flow FiO2 Time Delivery Rate 12/19/18 97.7 75 18 139/99 98 14:18 (112) 12/18/18 Room Air 15:31 12/18/18 6.0 10:15 Intake and Output 12/18/18 12/18/18 12/19/18 1515:00 23:00 07:00 IntakeIntake Total 2040 ml 440 ml 1250 ml OutputOutput Total 10 ml BalanceBalance 2030 ml 440 ml 1250 ml Exam Free Text/Dictation Constitutional: alert, oriented Psych: nl mood/affect, anxiety (Minimal) Head: normocephalic, atraumatic Eyes: nl conjunctiva, EOMI, nl lids, nl sclera ENMT: nl external ears & nose, nl lips & teeth, mucosa pink and moist Neck: supple, non-tender Respiratory: normal air movement; No congested cough Cardiovascular: regular rate and rhythm, nl pulses Gastrointestinal: soft, tender (incision sites, incision sites dry without drainage/discoloration/bruising); No distended, No firm Musculoskeletal: nl extremities to inspection, nl gait and stance Extremities: normal pulses; No edema Neurological: nl mental status, nl speech, nl strength Skin: nl turgor; No rash or lesions Lymph: nl lymph nodes Results Result Diagram: 12/19/184 12/19/184 SMITA BERMUDEZ NP Dec 19, 2018 21:25
[2018-12-20] MEDS ORDERED: INSULIN GLARGINE [LANTus] (100 UNITS/ML) SYG SC ONE
[2018-12-20 02:15] VITALS: BP 138/63; PULSE 78; RESP 19
[2018-12-20] MEDS: ACCU-CHEK XX SCH (02:35)
--- NOTE | 2018-12-20 07:39 | NUR ---
End of Shift Summary: S/P LAPAROSCOPIC CHOLECYSTECTOMY on 12/18. Pt is A&O x4. Vital signs within normal limits. No acute changes. Respiratory and hemodynamics remain stable. Patient denies chest pain, palpitations, shortness of breath, nausea, vomiting, headache, cough, or changes in bowel/bladder habits. Pt received norco for pain management. SCD's in place. Last BM on 12/14. Pt received colace and dulcolax. Blood sugar 280, 243 and 207 during shift. Pt received 3 units of novolog and lantus 4 units with additional 7 units. IV site is intact and asystematic. Lap sites are clean, dry, and intact. Encouraged incentive spirometer use Q1hr x10 while awake. Teaching provided and patient understands instructions. Safety precautions maintained throughout the shift. Bed in lowest position and bed alarm activated. Call light within reach. Hourly rounding rendered. All needs met.
[2018-12-20 07:43] VITALS: BP 148/78; PULSE 86; RESP 18
[2018-12-20] MEDS: METHIMAZOLE 5 MG TAB PO SCH (09:02)
[2018-12-20] MEDS: POLYETHYLENE GLYCOL 17 GM PACKET PO SCH ×2 (09:02→20:21)
[2018-12-20] MEDS: metFORMIN 500 MG TAB PO SCH ×2 (09:04→17:43)
[2018-12-20] MEDS: FAMOTIDINE 20 MG INJ IV SCH (09:04)
[2018-12-20] MEDS: INSULIN ASPART [NOVOLOG] 3 ML PEN SC SCH ×4 (09:12→22:46)
[2018-12-20] MEDS: HYDROCODONE/APAP (10/325) TAB PO PRN ×2 (10:32→20:21)
[2018-12-20] MEDS: ONDANSETRON 4 MG INJ IV PRN (10:35)
--- NOTE | 2018-12-20 11:15 | PN ---
Date/Time of Note Date/Time of Note DATE: 12/20/18 TIME: 11:14 Assessment/Plan Lines/Catheters IV Catheter Type (from Nrsg): Peripheral IV Assessment/Plan Chief Complaint/Hosp Course 1. Symptomatic cholelithiasis: Status post laparoscopic cholecystectomy 12/18/18-IS -ambulate -ice pack to abdominal wall -diet as tolerated -DC planning okay from surgical standpoint with f/u in office in 1-2 weeks 2. Abdominal pain: 2/? #1 versus other: -As above -Pain management 3.Thrombocytosis: -Trend -Further workup if persistent 4. Normocytic normochromic anemia: -Monitor and transfuse as needed 5. Diabetes -diet/med optimization 7. Hyperthyroidism: -Med management 8. Hypoalbuminemia: -Eventual nutrition optimization 9. Pyuria -Frequent bladder emptying Thank you. Patient seen and examined in collaboration with Dr. Josh Hagen. Subjective 24 Hr Interval Summary Tolerating diet without abdominal pain or discomfort. Min nausea. No fevers, ch ills, sob, congested cough, cp, palpitations, dinero, dizziness, n/v/d/dysuria. Exam/Review of Systems Vital Signs Vitals Vital Signs Date Temp Pulse Resp B/P (MAP) Pulse Ox O2 O2 Flow FiO2 Time Delivery Rate 12/20/18 98.6 86 18 148/78 98 Room Air 07:43 (101) 12/18/18 6.0 10:15 Intake and Output 12/19/18 12/19/18 12/20/18 1515:00 23:00 07:00 IntakeIntake Total 1600 ml BalanceBalance 1600 ml Exam Free Text/Dictation Constitutional: alert, oriented Psych: nl mood/affect, anxiety (Minimal) Head: normocephalic, atraumatic Eyes: nl conjunctiva, EOMI, nl lids, nl sclera ENMT: nl external ears & nose, nl lips & teeth, mucosa pink and moist Neck: supple, non-tender Respiratory: normal air movement; No congested cough Cardiovascular: regular rate and rhythm, nl pulses Gastrointestinal: soft, tender (incision sites, incision sites dry without drainage/discoloration/bruising); No distended, No firm Musculoskeletal: nl extremities to inspection, nl gait and stance Extremities: normal pulses; No edema Neurological: nl mental status, nl speech, nl strength Skin: nl turgor; No rash or lesions Lymph: nl lymph nodes Results Result Diagram: 12/20/18 0435 12/20/18 0439 SMITA BERMUDEZ NP Dec 20, 2018 11:15
[2018-12-20 14:00] VITALS: BP 136/66; PULSE 77; RESP 18
--- NOTE | 2018-12-20 18:49 | PDOCDIS ---
Discharge Instructions CONDITION [id number] Patient Condition: [id number] Good HOME CARE INSTRUCTIONS: [id number] Diet Instructions: [id number] Low Fat /Cholesterol ACTIVITY: [id number] Activity Restrictions: [id number] No Restrictions Slowly Increase Activity Avoid heavy lifting [id number] Bathing Restrictions: [id number] Shower FOLLOW UP/APPOINTMENTS Follow-up Plan appt PCP 1-[address] Miguel A Hagen 1wk NIXON LA MD Dec 20, 2018 18:49
[2018-12-20] MEDS ORDERED: DOCU-159 PO (18:50)
[2018-12-20] MEDS ORDERED: POLY17PO6 PO (18:50)
[2018-12-20] MEDS ORDERED: HYDR-3609 PO (18:50)
--- NOTE | 2018-12-20 19:40 | NUR ---
RN NOTES =alert oriented comfortable at this time. diet tolerated no n/v ,. assisted with minimal assist. passing gas.. incision on her abdomen intact ..
[2018-12-20 20:00] VITALS: BP 165/77; PULSE 82; RESP 18
[2018-12-20] MEDS: ATORVASTATIN 80 MG TAB PO SCH (20:21)
[2018-12-20] MEDS: INSULIN GLARGINE [LANTus] (100 UNITS/ML) SYG SC SCH (23:24)
--- NOTE | 2018-12-20 23:45 | PN ---
Date/Time of Note Date/Time of Note DATE: 12/20/18 TIME: 23:44 Assessment/Plan VTE Prophylaxis Risk score (from Nsg)>0 risk: 4 SCD applied (from Nsg): Yes SCD contraindicated: low risk/ambulating Pharmacological prophylaxis: LMWH Lines/Catheters IV Catheter Type (from Nrsg): Peripheral IV Assessment/Plan Hospital Course Assessment and plan 1. Symptomatic cholelithiasis, sp lap chol; stable treat pain 2. Type 2 diabetes/metabolic syndrome 3. Anemia stable 4. Cystitis? 3-day therapy 5. Subclinical hyperparathyroidism 6. Accelerated hypertension, treat pain 7. Neck left arm pain probably musculoskeletal rule out ACS S: 12/17 no events. No fever vomiting 12/18 events noted 12/19: Nonexertional neck left arm pain unable to characterize. No previous similar discomfort in the past. No nausea vomiting diaphoresis. 12/20: much better O: Vss PE No pallor icterus Regular Clear Bs dimin mod tender; nd, no RRG No edema; rom shoulder intact Result Diagram: 12/20/18 0435 12/20/18 0439 Results 24hrs Laboratory Tests Test 12/20/18 00:39 12/20/18 02:34 12/20/18 04:35 12/20/18 04:39 Bedside Glucose 243 H 207 White Blood Count 6.1 # Red Blood Count 3.83 L Hemoglobin 11.2 L Hematocrit 34.1 L Mean Corpuscular 89.0 Volume Mean Corpuscular 29.2 Hemoglobin Mean Corpuscular 32.8 Hemoglobin Concent Red Cell 12.9 Distribution Width Platelet Count 376 Mean Platelet Volume 10.6 H Immature 0.300 Granulocytes % Neutrophils % 55.3 Lymphocytes % 32.3 Monocytes % 11.0 Eosinophils % 0.8 Basophils % 0.3 Nucleated Red Blood 0.0 Cells % Immature 0.020 Granulocytes # Neutrophils # 3.4 Lymphocytes # 2.0 Monocytes # 0.7 Eosinophils # 0.1 Basophils # 0.0 Nucleated Red Blood 0.0 Cells # Sodium Level 138 Potassium Level 3.8 Chloride Level 100 Carbon Dioxide Level 30 Anion Gap 8 Blood Urea Nitrogen 5 L Creatinine 0.42 L Est Glomerular > 60 Filtrat Rate mL/min Glucose Level 188 Calcium Level 9.0 Phosphorus Level 2.2 L Magnesium Level 1.9 Total Bilirubin 0.1 L Direct Bilirubin 0.00 Indirect Bilirubin 0.1 Aspartate Amino 27 Transf (AST/SGOT) Alanine 37 Aminotransferase (AL T/SGPT) Alkaline Phosphatase 91 Troponin I 0.013 Total Protein 6.0 L Albumin 3.0 L Globulin 3.00 Albumin/Globulin 1.00 Ratio Lipase 59 Test 12/20/18 08:28 12/20/18 12:28 12/20/18 17:38 12/20/18 22:46 Bedside Glucose 154 152 157 177 Exam/Review of Systems Exam Vitals Vital Signs Date Temp Pulse Resp B/P (MAP) Pulse Ox O2 O2 Flow FiO2 Time Delivery Rate 12/20/18 98.1 82 18 165/77 100 Room Air 20:00 (106) 12/18/18 6.0 10:15 Intake and Output 12/19/18 12/19/18 12/20/18 1515:00 23:00 07:00 IntakeIntake Total 1600 ml BalanceBalance 1600 ml Results Results 24hrs Laboratory Tests Test 12/20/18 00:39 12/20/18 02:34 12/20/18 04:35 12/20/18 04:39 Bedside Glucose 243 H 207 White Blood Count 6.1 # Red Blood Count 3.83 L Hemoglobin 11.2 L Hematocrit 34.1 L Mean Corpuscular 89.0 Volume Mean Corpuscular 29.2 Hemoglobin Mean Corpuscular 32.8 Hemoglobin Concent Red Cell 12.9 Distribution Width Platelet Count 376 Mean Platelet Volume 10.6 H Immature 0.300 Granulocytes % Neutrophils % 55.3 Lymphocytes % 32.3 Monocytes % 11.0 Eosinophils % 0.8 Basophils % 0.3 Nucleated Red Blood 0.0 Cells % Immature 0.020 Granulocytes # Neutrophils # 3.4 Lymphocytes # 2.0 Monocytes # 0.7 Eosinophils # 0.1 Basophils # 0.0 Nucleated Red Blood 0.0 Cells # Sodium Level 138 Potassium Level 3.8 Chloride Level 100 Carbon Dioxide Level 30 Anion Gap 8 Blood Urea Nitrogen 5 L Creatinine 0.42 L Est Glomerular > 60 Filtrat Rate mL/min Glucose Level 188 Calcium Level 9.0 Phosphorus Level 2.2 L Magnesium Level 1.9 Total Bilirubin 0.1 L Direct Bilirubin 0.00 Indirect Bilirubin 0.1 Aspartate Amino 27 Transf (AST/SGOT) Alanine 37 Aminotransferase (AL T/SGPT) Alkaline Phosphatase 91 Troponin I 0.013 Total Protein 6.0 L Albumin 3.0 L Globulin 3.00 Albumin/Globulin 1.00 Ratio Lipase 59 Test 12/20/18 08:28 12/20/18 12:28 12/20/18 17:38 12/20/18 22:46 Bedside Glucose 154 152 157 177 Medications Medication Current Medications IV Flush (NS 3 ml) 3 ml PER PROTOCOL IV ; Start 12/14/18 at 21:30 Hydromorphone HCl (Dilaudid) 0.5 mg Q4H PRN IV .SEVERE PAIN 7-10 Last administered on 12/17/18 20:26; Admin Dose 0.5 MG; Start 12/14/18 at 21:30 Docusate Sodium (Colace) 100 mg Q12H PRN PO .CONSTIPATION Last administered on 12/19/18 20:31; Admin Dose 100 MG; Start 12/14/18 at 21:30 Bisacodyl (Dulcolax) 5 mg DAILY PRN PO .CONSTIPATION Last administered on 20:31; Admin Dose 5 MG; Start 12/14/18 at 21:30 Atorvastatin Calcium (Lipitor) 80 mg QHS PO Last administered on 12/20/18at 20:21; Admin Dose 80 MG; Start 12/14/18 at 22:00 Miscellaneous Information 1 ea NOTE XX ; Start 12/15/18 at 10:30 Glucose (Glutose) 15 gm Q15M PRN PO DECREASED GLUCOSE; Start 12/15/18 at 10:30 Glucose (Glutose) 22.5 gm Q15M PRN PO DECREASED GLUCOSE; Start 12/15/18 at 10:30 Dextrose (D50w Syringe) 25 ml Q15M PRN IV DECREASED GLUCOSE; Start 12/15/18 at 10:30 Dextrose (D50w Syringe) 50 ml Q15M PRN IV DECREASED GLUCOSE; Start 12/15/18 at 10:30 Glucagon (Glucagen) 1 mg Q15M PRN IM DECREASED GLUCOSE; Start 12/15/18 at 10:30 Glucose (Glutose) 15 gm Q15M PRN BUCCAL DECREASED GLUCOSE; Start 12/15/18 at 10:30 Diagnostic Test (Pha) (Accu-Chek) 1 ea 02 XX Last administered on 12/20/18at 02:35; Admin Dose 1 EA; Start 12/16/18 at 02:00 Insulin Aspart (Novolog Insulin Pen) NOVOLOG *MILD* ALGORITHM WITH MEALS BEDTIME SC Last administered on 12/20/18 17:42; Admin Dose 1 UNIT; Start 12/15/18 at 17:55 Methimazole (Tapazole) 10 mg DAILY PO Last administered on 12/20/18 09:02; Admin Dose 10 MG; Start 12/16/18 at 13:30 Insulin Glargine (Lantus) 4 units DAILY@2000 SC Last administered on 12/20/18 23:24; Admin Dose 4 UNITS; Start 12/17/18 at 20:00 Famotidine (Pepcid Iv) 20 mg DAILY IV Last administered on 12/20/18 09:04; Admin Dose 20 MG; Start 12/18/18 at 09:00 Ondansetron HCl (Zofran Inj) 4 mg Q4H PRN IV NAUSEA/VOMITING Last administered on 12/20/18 10:35; Admin Dose 4 MG; Start 12/18/18 at 12:30 Acetaminophen/ Hydrocodone Bitart ([place] (10/325)) 1 tab Q4H PRN PO MODERATE PAIN LEVEL 4-6 Last administered on 12/20/18 20:21; Admin Dose 1 TAB; Start 12/18/18 at 18:00 Metformin HCl (Glucophage) 500 mg WITH BREAKFAST DINNE PO Last administered on 12/20/18 17:43; Admin Dose 500 MG; Start 12/19/18 at 17:55 Polyethylene Glycol (Miralax) 17 gm BID PO Last administered on 12/20/18 20:21; Admin Dose 17 GM; Start 12/20/18 at 09:00 NIXON LA MD Dec 20, 2018 23:45
[2018-12-21 02:00] VITALS: BP 124/63; PULSE 71; RESP 18
[2018-12-21] MEDS: ACCU-CHEK XX SCH (02:00)
--- NOTE | 2018-12-21 06:04 | NUR ---
EOSS: alert, oriented, ambulatory with steady gait. Afebrile, c/o pain at bedtime, given PRN [place] with help. Tolerated all PO meds, denies nausea. Anticipating discharge today.
[2018-12-21 07:35] VITALS: BP 131/62; PULSE 68; RESP 19
[2018-12-21] MEDS: INSULIN ASPART [NOVOLOG] 3 ML PEN SC SCH ×2 (07:50→13:01)
[2018-12-21] MEDS: BISACODYL (EC) 5 MG TAB PO PRN (08:19)
[2018-12-21] MEDS: FAMOTIDINE 20 MG INJ IV SCH (08:20)
[2018-12-21] MEDS: POLYETHYLENE GLYCOL 17 GM PACKET PO SCH (08:20)
[2018-12-21] MEDS: DOCUSATE SODIUM 100 MG CAP PO PRN (08:20)
[2018-12-21] MEDS: metFORMIN 500 MG TAB PO SCH (08:20)
[2018-12-21] MEDS: METHIMAZOLE 5 MG TAB PO SCH (08:20)
--- NOTE | 2018-12-21 11:21 | PN ---
Date/Time of Note Date/Time of Note DATE: 12/21/18 TIME: 11:19 Assessment/Plan Lines/Catheters IV Catheter Type (from Nrs): Saline [place] Assessment/Plan Chief Complaint/Hosp Course 1. Symptomatic cholelithiasis: Status post laparoscopic cholecystectomy 12/18/18-IS -ambulate -ice pack to abdominal wall -diet as tolerated -DC okay from surgical standpoint with f/u in office in 1-2 weeks 2. Abdominal pain: /? #1 versus other: -As above -Pain management 3.Thrombocytosis: -Trend -Further workup if persistent 4. Normocytic normochromic anemia: -Monitor and transfuse as needed 5. Diabetes -diet/med optimization 7. Hyperthyroidism: -Med management 8. Hypoalbuminemia: -Eventual nutrition optimization 9. Pyuria -Frequent bladder emptying 10. Constipation: -Optimize bowel regimen Thank you. Patient seen and examined in collaboration with Dr. Josh Hagen. Subjective 24 Hr Interval Summary Feels well but constipated. No fevers, chills, sob, congested cough, cp, palpitations, dinero, dizziness, nausea, vomiting, diarrhea, dysuria. No abdominal pain. Exam/Review of Systems Vital Signs Vitals Vital Signs Date Temp Pulse Resp B/P (MAP) Pulse Ox O2 O2 Flow FiO2 Time Delivery Rate 12/21/18 98.2 68 19 131/62 98 07:35 (85) 12/21/18 Room Air 02:00 12/18/18 6.0 10:15 Intake and Output 12/20/18 12/20/18 12/21/18 1515:00 23:00 07:00 IntakeIntake Total 240 ml 300 ml BalanceBalance 240 ml 300 ml Exam Free Text/Dictation Constitutional: alert, oriented Psych: nl mood/affect, anxiety (Minimal) Head: normocephalic, atraumatic Eyes: nl conjunctiva, EOMI, nl lids, nl sclera ENMT: nl external ears & nose, nl lips & teeth, mucosa pink and moist Neck: supple, non-tender Respiratory: normal air movement; No congested cough Cardiovascular: regular rate and rhythm, nl pulses Gastrointestinal: soft, tender (incision sites, incision sites dry without drainage/discoloration/bruising); No distended, No firm Musculoskeletal: nl extremities to inspection, nl gait and stance Extremities: normal pulses; No edema Neurological: nl mental status, nl speech, nl strength Skin: nl turgor; No rash or lesions Lymph: nl lymph nodes Results Result Diagram: 12/20/18 0435 12/20/18 0439 SMITA BERMUDEZ NP Dec 21, 2018 11:20
[2018-12-21] MEDS ORDERED: NA PHOSPHATE/BIPHOS 133 ML ENEMA PR ONE (11:30)
[2018-12-21] MEDS ORDERED: BISACODYL 10 MG SUPP PR ONE (11:30)
--- NOTE | 2018-12-21 12:08 | DS ---
Date/Time of Note Date/Time of Note DATE: 12/21/18 TIME: 12:00 Discharge Summary Admission/Discharge Info Admit Date/Time Dec 15, 2018 at 10:08 Discharge Date/Time Patient Condition: Good Consults Dr Miguel A Hagen Procedures ULTRASOUND ABD IMPRESSION: Cholelithiasis without evidence of acute cholecystitis. Hepatic steatosis. CT ABD/PEL IMPRESSION: No acute abnormalities in the abdomen or pelvis. Cholelithiasis without CT evidence of acute cholecystitis. Atherosclerotic disease. HIDA IMPRESSION: 1. Negative hepatobiliary scan. There is normal filling of the gallbladder. 2. Patent common bile duct with normal visualization of the small bowel. PATH: [phone] PRELIMINARY MICROSCOPIC DIAGNOSIS: A-Liver, biopsy: -- Severe steatosis with moderate lobular necroinflammatory activity, granulomas and focal interface activity. -- Abnormal iron deposition in hepatocytes (please see comment). B-Gallbladder, cholecystectomy: -- Patchy mucosal denudation. -- Cholelithiasis (gross only). -- No evidence of malignancy. COMMENT: The liver shows necroinflammatory activities of the lobules with granulomas and focal interface activity. However, the liver function test is normal. The morphological impression does not correlate with the liver function tests and this case is forwarded to Dr. Sy Carter of [facility] for his review. A final report will follow. This case was reviewed by Dr. Walt Cano who concurs. / Date of Service: 12/18/18; Date Received: 12/18/18 Dictated: 12/20/18; Transcribed: 12/20/18; Sent by Fax: 12/20/18; Reviewed: ROBERT Hx of Present Illness 58yr F w abd pain Hospital Course Hospital course -A/P 1. Symptomatic cholelithiasis, sp lap chol; stable discharge home 2. Type 2 diabetes/metabolic syndrome 3. Anemia stable 4. Cystitis? 3-day therapy 5. Subclinical hyperthyroidism outpatient endocrine eval 6. Accelerated hypertension, treat pain 7. Neck left arm pain probably musculoskeletal. ruled out ACS 8. Constipation S: 2/11 no events. No fever vomiting 12/18 events noted 12/19: Nonexertional neck left arm pain unable to characterize. No previous similar discomfort in the past. No nausea vomiting diaphoresis. 12/20: much better 12/21: No events O: Vss PE No pallor icterus Regular Clear Bs dimin mod tender; nd, no RRG No edema; rom shoulder intact Home Meds Active Scripts Docusate Sodium* (Docusate Sodium*) 100 Mg Capsule, 100 MG PO Q12H PRN for .CONSTIPATION for 7 Days, #20 CAP otc Prov:NIXON LA MD 12/20/18 Polyethylene Glycol* (Miralax*) 17 Gm Powd.pack, 17 GM PO BID for 7 Days otc Prov:NIXON LA MD 12/20/18 Hydrocodone/Acetaminophen (Hydrocodone-Acetamin 10-325 mg) 1 Each Tablet, 1 TAB PO Q4H PRN for MODERATE PAIN LEVEL 4-6 for 24 Days, TAB Prov:NIXON LA MD 12/20/18 Reported Medications Ondansetron Hcl* (Zofran*) 4 Mg Tablet, 4 MG PO Q8, TAB 12/14/18 Tramadol Hcl* (Ultram*) 50 Mg Tablet, 50 MG PO Q12H PRN for PAIN, TAB 12/14/18 Metformin Hcl* (Metformin Hcl*) 500 Mg Tablet, 500 MG PO WITH BREAKFAST DINNE, #60 TAB 12/14/18 Atorvastatin* (Atorvastatin*) 80 Mg Tablet, 80 MG PO QHS, #30 TAB 12/14/18 Follow-up Plan appt PCP 1-[address] Miguel A Hagen 1wk Primary Care Provider [facility] Time spent on discharge: > 30 minutes Pending Labs Laboratory Tests Test 12/20/18 12:28 12/20/18 17:38 12/20/18 22:46 12/21/18 04:33 Bedside 152 157 177 Glucose mg/dL (70-220) mg/dL (70-220) mg/dL (70-220) Thyroid 0.180 Stimulating MIU/L (0.465-4 Hormone (TSH) .680) Free Thyroxine 2.26 ng/dl (0.64-1. 79) Free 4.19 Triiodothyronin pg/ml (2.77-5. e (T3) pg/mL 27) Test 12/21/18 08:18 Bedside 134 Glucose mg/dL (70-220) NIXON LA MD Dec 21, 2018 12:08
--- NOTE | 2018-12-21 12:16 | NUR ---
ROXI NOTES =alert oriented comfortable ambulated to the hallway with steady gait , diet tolerated no n/v . Addendum: 12/21/18 at 1805 by RYLEE CHARLTON RN =d/c instruction given and follow up appt given to the patient and and verbalized understanding =d/c on a stable condition
[2018-12-21] MEDS ORDERED: PROPYLTHIOURACIL 50 MG TAB PO ONE (13:30)
[2018-12-21 14:28] VITALS: BP 121/68; PULSE 84; RESP 18
--- NOTE | 2018-12-21 16:29 | NUR ---
TK NOTES: MET WITH THE PT AT THE BEDSIDE. THROUGH THE PUBLIC HEALTH AIDE, PT WAS GIVEN [facility] INFORMATION FOR OUTPT FOLLOW UP ON 2 ND FLOOR FOR PCP AND ENDO. PER THE PUBLIC HEALTH AIDE, PT'S WILL PROVIDE TRANSPORTATION FROM HOSPITAL TO HOME TONIGHT. BEDSIDE NURSE WAS INFORMED ALL THE UPDATE. ALETHEA MERCER LEAD CM [id number]
[2018-12-22] MEDS ORDERED: FAMOTIDINE 20 MG TAB PO SCH (09:00)
== END 2018-12-21 18:15 | disposition home or self-care (01) | DRG 418 ==
LOC: E/R 18:06 → MS1 21:33 → OBSVTOIN 12-15 10:08 → MS1 12-19 22:09
PROVIDERS: ADMIT Family Medicine; ATTEND Internal Medicine
PROC: 0FB04ZX Excision of Liver, Percutaneous Endoscopic Approach, Diagnostic (ICD-10-PCS; 2018-12-18)
PROC: 0FT44ZZ Resection of Gallbladder, Percutaneous Endoscopic Approach (ICD-10-PCS; principal; 2018-12-18 09:30)
DX: K80.20 Calculus of gallbladder without cholecystitis without obstruction (principal); E87.1 Hypo-osmolality and hyponatremia; E11.9 Type 2 diabetes mellitus without complications; D64.9 Anemia, unspecified; N30.90 Cystitis, unspecified without hematuria; E05.90 Thyrotoxicosis, unspecified without thyrotoxic crisis or storm; E88.09 Other disorders of plasma-protein metabolism, not elsewhere classified; K76.0 Fatty (change of) liver, not elsewhere classified; M54.2 Cervicalgia; M79.602 Pain in left arm; K59.00 Constipation, unspecified
CPT/HCPCS: 36415; 71045; 74176; 76705; 78226; 80053; 80061; 81001; 82962; 83036; 83690; 83735; 84100; 84235; 84439; 84443; 84481; 84484; 84703; 85025; 85610; 87086; 88304; 88307; 88312; 88313; 93005; 96374; 96375; A9537; G0378; J0696; J1100; J1170; J1815; J2405; J2543; J2710; J3010; J7030